=== PATIENT | male | born 1980 | race American Indian/Alaskan Native ===

== ENCOUNTER 2016-12-22 23:12 | Emergency (ER) | payer SELFPAY ==
[2016-12-23 00:05] LABS: Basophils % (Auto) 0.7 % (0.0-1.8); Eosinophils % (Auto) 1.6 % (0.0-4.3); Hemoglobin 15.3 gm/dl (11.8-15.2); Mean Corpuscular HGB Conc 32 % (32-34); Mean Corpuscular Hemoglobin 27 pg (28-32); Mean Corpuscular Volume 83 fl (84-94); Platelet Count 179 K/mm3 (140-440); Red Blood Count 5.78 M/mm3 (3.65-5.03); Red Cell Distribution Width 14.1 % (13.2-15.2); White Blood Count 8.3 K/mm3 (4.5-11.0)
[2016-12-23 00:20] LABS: Anion Gap 20 mmol/L; Blood Urea Nitrogen 11 mg/dL (9-20); Calcium 8.7 mg/dL (8.4-10.2); Carbon Dioxide 23 mmol/L (22-30); Chloride 97.9 mmol/L (98-107); Glucose 88 mg/dL (75-100); Potassium 3.7 mmol/L (3.6-5.0); Sodium 137 mmol/L (137-145)
[2016-12-23 02:21] VITALS: BP 112/82
--- NOTE | 2016-12-24 00:26 | ED Elopement Review ---
ED Pt Elopement review - Results review Lab results: Laboratory Tests 12/22/16 12/22/16 12/23/16 Unknown Unknown 03:33 WBC 8.3 RBC 5.78 H Hgb 15.3 H Hct 48.0 H MCV 83 L MCH 27 L MCHC 32 RDW 14.1 Plt Count 179 Lymph % (Auto) 28.7 [place] % (Auto) 10.0 H Eos % (Auto) 1.6 Baso % (Auto) 0.7 Lymph # 2.4 [place] # 0.8 Eos # 0.1 Baso # 0.1 Seg Neutrophils % 59.0 Seg Neutrophils # 4.9 Sodium 137 Potassium 3.7 Chloride 97.9 L Carbon Dioxide 23 Anion Gap 20 BUN 11 Creatinine 1.0 Estimated GFR > 60 BUN/Creatinine Ratio 11.00 Glucose 88 Calcium 8.7 Troponin T < 0.010 < 0.010 - Call Back decision Pt Call Back Decision: No action required
== END 2016-12-23 05:56 | disposition left against medical advice (07) ==
LOC: ED 23:12
DX: R07.9 Chest pain, unspecified (principal); Z53.21 Procedure and treatment not carried out due to patient leaving prior to being seen by health care provider
CPT/HCPCS: 36415; 80048; 84484; 85025; 93005; 93010

== ENCOUNTER 2017-01-28 08:00 | Inpatient (IN) | payer OTHER ==
[2017-01-28 09:31] LABS: Basophils % (Auto) 0.7 % (0.0-1.8); Eosinophils % (Auto) 2.4 % (0.0-4.3); Hematocrit 48.8 % (35.5-45.6); Hemoglobin 15.4 gm/dl (11.8-15.2); Mean Corpuscular HGB Conc 32 % (32-34); Mean Corpuscular Hemoglobin 26 pg (28-32); Mean Corpuscular Volume 83 fl (84-94); Platelet Count 181 K/mm3 (140-440); Red Blood Count 5.89 M/mm3 (3.65-5.03); Red Cell Distribution Width 14.5 % (13.2-15.2)
--- NOTE | 2017-01-28 09:44 | XRay Report ---
CHEST XRAY, 2 VIEWS: History: Cough. Findings: There is mild cardiomegaly. Pulmonary vessels are within normal limits. The lungs are clear and fully expanded. No infiltrate, pleural effusion or pneumothorax. Normal thoracic cage. 2-lead pacemaker devices in good position. IMPRESSION: Cardiomegaly.
[2017-01-28 10:09] LABS: INR 1.03 (0.87-1.13)
[2017-01-28 10:10] LABS: Partial Thromboplastin Time 28.3 Sec. (24.2-36.6)
[2017-01-28 10:21] LABS: Alanine Aminotransferase 16 units/L (7-56); Albumin 3.7 g/dL (3.9-5); Alkaline Phosphatase 67 units/L (35-129); BUN/Creatinine Ratio 11.11; Bilirubin,Total 0.5 mg/dL (0.1-1.2); Blood Urea Nitrogen 10 mg/dL (9-20); Calcium 8.7 mg/dL (8.4-10.2); Carbon Dioxide 25 mmol/L (22-30); Glucose 90 mg/dL (75-100); Total Protein 7.4 g/dL (6.3-8.2)
[2017-01-28 10:22] LABS: Anion Gap 18 mmol/L; Chloride 100.3 mmol/L (98-107); Potassium 4.2 mmol/L (3.6-5.0); Sodium 139 mmol/L (137-145)
[2017-01-28 10:26] LABS: Bilirubin,Direct < 0.2 mg/dL (0-0.2)
[2017-01-28] MEDS ORDERED: ROBITUSSIN AC PO ONE (10:45)
[2017-01-28] MEDS ORDERED: BABY ASPIRIN PO ONE (10:45)
--- NOTE | 2017-01-28 10:57 | Emergency Department Report ---
HPI - General Chief Complaint: Chest Pain Time Seen by Provider: 01/28/17 10:23 - HPI HPI: This is a 36-year-old Afro-[place] male who presents to the emergency department from home with complaint of a 2 month history of a mixed dry and productive cough, 2 day history of nausea and vomiting, as well as some increased chest tightness and shortness of breath the past few days. Patient says he has a history of asthma as well as bronchitis, that he has gotten 2-3 times in the past year. He has been having a productive cough with yellowish mucous but does not feel like he can get out enough of the mucus or chest congestion. Patient has a history of cardiomyopathy and a pacemaker/ defibrillator placement secondary to earlier heavy alcohol use. He also has a history of a CVA in 2013 that did not leave him with any deficits. The patient is a tobacco smoker and occasionally uses marijuana. He does not have a primary care doctor. No recent travel or sick contacts at home. He has not taken anything for symptoms today prior to presentation. ED Past Medical Hx - Past Medical History Hx Asthma: Yes Additional medical history: cardiomyopathy, irreg heart beat, Pacemaker/Defib, anxity, depression - Surgical History Additional Surgical History: Pacemaker/defib - Social History Smoking Status: Current Every Day Smoker Substance Use Type: None - Medications Home Medications: Home Medications Medication Instructions Recorded Confirmed Last Taken Type No Known Home Medications [No 01/28/17 01/28/17 Unknown History Reported Home Medications] ED Review of Systems ROS: Stated complaint: COUGH/CHEST TIGHTNESS Other details as noted in HPI Comment: All other systems reviewed and negative Constitutional: denies: chills, fever Eyes: denies: eye pain, eye discharge, vision change ENT: denies: ear pain, throat pain Respiratory: cough, shortness of breath, wheezing Cardiovascular: chest pain. denies: edema Gastrointestinal: nausea, vomiting. denies: abdominal pain Genitourinary: denies: urgency, dysuria Musculoskeletal: denies: back pain, joint swelling, arthralgia Skin: denies: rash, lesions Neurological: denies: headache, weakness, paresthesias Physical Exam - Physical Exam Vital Signs: Vital Signs 01/28/17 01/28/17 01/28/17 08:07 09:19 09:21 Temperature 98.5 F Pulse Rate 11 L 109 H Respiratory 24 Rate Blood Pressure 126/81 117/85 117/85 O2 Sat by Pulse 99 Oximetry 01/28/17 01/28/17 09:22 09:24 Temperature Pulse Rate 107 H Respiratory 48 H 24 Rate Blood Pressure 117/85 O2 Sat by Pulse 94 99 Oximetry Physical Exam: GENERAL: The patient is well-developed well-nourished. HEENT: Normocephalic. Atraumatic. Extraocular motions are intact. Patient has moist mucous membranes. Pupils equal reactive to light bilaterally. NECK: Supple. Trachea is midline. CHEST/LUNGS: Clear to auscultation. There is no respiratory distress noted. HEART/CARDIOVASCULAR: Regular. There is no tachycardia. There is no gallop rub or murmur. ABDOMEN: Abdomen is soft, nontender. Patient has normal bowel sounds. There is no abdominal distention. SKIN: There is no rash. There is no edema. There is no diaphoresis. NEURO: The patient is awake, alert, and oriented. The patient is cooperative. The patient has no focal neurologic deficits. The patient has normal speech. MUSCULOSKELETAL: There is no tenderness or deformity. There is no limitation range of motion. There is no evidence of acute injury. ED Course Vital Signs 01/28/17 01/28/17 01/28/17 08:07 09:19 09:21 Temperature 98.5 F Pulse Rate 11 L 109 H Respiratory 24 Rate Blood Pressure 126/81 117/85 117/85 O2 Sat by Pulse 99 Oximetry 01/28/17 01/28/17 09:22 09:24 Temperature Pulse Rate 107 H Respiratory 48 H 24 Rate Blood Pressure 117/85 O2 Sat by Pulse 94 99 Oximetry ED Medical Decision Making - Lab Data Result diagrams: 01/28/17 08:29 01/28/17 08:29 - EKG Data -: EKG Interpreted by Me EKG shows normal: sinus rhythm, axis (RAD), intervals (prolonged QTC), QRS complexes (right bundle-branch block), ST-T waves (T-wave inversions to the inferior leads, nonspecific ST-T changes) Rate: tachycardia (106 bpm) - EKG Data When compared to previous EKG there are: no significant change Interpretation: unchanged when compared t (12/22/16) - Radiology Data Radiology results: report reviewed, image reviewed interpreted by me: Chest x-ray did not show any acute process. Heart is normal shape and size. No effusions. No pneumothorax. No signs of pneumonia seen. CT angiography of the chest shows at least one small pulmonary embolus to the right lower lobe. Cardiomegaly. - Medical Decision Making 36-year-old male presents the emergency department with some chronic bronchitis- like symptoms but more recently some shortness of breath and some chest tightness. Patient does have a history of cardiomyopathy. Patient has only troponins despite that he has no renal insufficiency. EKG does not show any signs of ST elevation PR. She had a slightly elevated in equivocal d-dimer so a CT angiography of the chest was done that resulted as at least 1 small right lower lobe pulmonary embolus. Patient was given aspirin to protect his heart. He'll be admitted to the hospital for further evaluation and has been accepted by Dr. Clement. I put in the orders to start heparin but anticoagulation will be decided upon by the admitting hospitalist. - Differential Diagnosis PR, PE, pneumonia, costochondritis, CHF Critical Care Time: No Critical care attestation.: If time is entered above; I have spent that time in minutes in the direct care of this critically ill patient, excluding procedure time. ED Disposition Clinical Impression: Pulmonary embolus, right, Elevated troponin Chest pain Qualifiers: Chest pain type: unspecified Qualified Code(s): R07.9 - Chest pain, unspecified Dyspnea Qualifiers: Dyspnea type: unspecified Qualified Code(s): R06.00 - Dyspnea, unspecified Disposition: OP ADMITTED IP TO THIS HOSP Is pt being admited?: Yes Condition: Stable Time of Disposition: 15:42
--- NOTE | 2017-01-28 11:16 | Admit Criteria Form ---
Admission Criteria Documentation: PULMONARY EMBOLISM Clinical Indications for Admission to Inpatient Care (Place 'X' for any and all applicable criteria): Admission is indicated by ANY ONE of the following 1,2,3,4,5 [ ]I. Onset of hypoxia [ ]II. Hemodynamic instability 5 [ ]III. Massive pulmonary embolism (eg, acute embolism causing sustained hypotension, pulselessness, or bradycardia)5 [ ]IV. Need for IV narcotics (eg, to treat dyspnea) [ ]V. Current use of home oxygen therapy [ ]. Active bleeding [ ]VII. Recent surgery [ ]VIII. Active peptic ulcer disease [ ]IX. Documented extensive thrombosis (eg, clot in vena cava or above iliofemoral bifurcation) [ ]X. Embolism while on anticoagulation [ ]XI. 6 [X]XII. Appropriate monitoring and therapy cannot be provided in home or outpatient setting. [ ]XIII. Systemic or catheter-directed thrombolysis 5,7 [ ]XIV. Catheter embolectomy and fragmentation 6 [ ]XV. Vena cava filter placement5 [ ]XVI. Severely diminished cardiopulmonary reserve (eg, cor pulmonale, pulmonary hypertension) [ ]XVII. Severe renal failure (eg, GFR less than 30 mL/min/1.73m2 (0.5 mL/sec/ 1.73m2)) [ ]XVIII.Right ventricular dysfunction (eg, by echocardiogram) 6,11 [ ]XIX. Positive cardiac biomarker (eg, troponin T or I > 0.1 ng/mL (mcg/L), highly sensitive troponin I assay greater than 0.014 ng/mL (mcg/L), BNP or NT proBNP > assay threshold)5,8,9 [ ]XX. Known clotting abn or def (eg, liver disease, antithrombin III, protein C, or protein S abnormality) [ ]XXI. History of heparin-induced thrombocytopenia [ ]XXII. Inpatient admission required rather than observation care (Also use Pulmonary Embolism: Observation Care guideline as appropriate) because of ANY ONE of the following: [ ] a) Significant autoimmune (thrombocytopenia) or coagulopathic reaction occurs in response to anticoagulation [ ] b) Respiratory symptoms (eg, tachypnea, dyspnea) that are severe or persistent [ ] c) Other condition, treatment, or monitoring requiring inpatient admission Extended stay beyond goal length of stay may be needed for 3,28 [ ]a) Hemorrhage or recent surgery [ ]b) Recurrent thromboembolism [ ]c) Persistent hypoxemia [ ]d) Heparin-induced thrombocytopenia The original [facility] [employer] content created by [facility] [employer] has been revised. The portions of the content which have been revised are identified through the use of italic text or in bold, and [facility] has neither reviewed nor approved the modified material. All other unmodified content is copyright [facility] [employer] Please see references footnoted in the original [facility] [employer] edition 2016 Admission Criteria Met: Yes
[2017-01-28] MEDS ORDERED: NACL ONE (13:00)
[2017-01-28] MEDS ORDERED: HEPARIN 10,000 UNITS/10 ML IV ONE (15:40)
--- NOTE | 2017-01-28 15:47 | Cat Scan Report ---
CTA CHEST: History: Chest pain Technique: Helical CT following IV contrast. Pulmonary embolus protocol. Sagittal and coronal reformatted images. Rotational MIP images. Findings: Contrast bolus is satisfactory. At least one occlusive pulmonary emboli is identified in a third order pulmonary artery leading to the posterior segment of the right lower lobe. No large central pulmonary embolus. No emboli are identified in the left lung. There is mild cardiomegaly. Pacemaker device is in place. No pericardial effusion. The aorta is unremarkable. The thyroid gland, tracheobronchial tree, esophagus, lung rose and bony thorax are unremarkable. Impression: Positive for at least one small pulmonary embolus to the right lower lobe. Cardiomegaly. These findings were discussed with Dr. Monroe in the emergency Department at 1530 hrs. Please note this examination was just presented to me. The technologist did not QC the examination for 2 hours after the exam was finished.
[2017-01-28] MEDS ORDERED: HEPARIN/ 0.45% NACL-25,000 UNIT/500 ML 25,000 UNITS/500 ML BAG IV SCH (16:00)
[2017-01-28] MEDS: ROBITUSSIN AC PO PRN (19:43)
[2017-01-28 21:16] LABS: INR 1.01 (0.87-1.13)
[2017-01-28 21:17] LABS: Partial Thromboplastin Time 25.2 Sec. (24.2-36.6)
--- NOTE | 2017-01-28 23:37 | Event Note ---
Date: 01/28/17 See H/p in reports Acute PE-RLL 3rd order pulmomary artery
[2017-01-28] MEDS ORDERED: LOVENOX SUB-Q SCH (23:45)
[2017-01-29] MEDS: LOVENOX SUB-Q SCH ×3 (00:04→23:36)
[2017-01-29] MEDS: ROBITUSSIN AC PO PRN ×4 (00:04→19:18)
[2017-01-29] MEDS: NACL 0.9% 1000 ML 1,000 ML IV SCH (02:51)
[2017-01-29] MEDS ORDERED: DUONEB 0.5 MG-3 MG/3 ML SOLN IH PRN (06:43)
[2017-01-29] MEDS ORDERED: SODIUM CHLORIDE FLUSH SYRINGE 10 ML IV PRN (06:48)
[2017-01-29] MEDS ORDERED: PROVENTIL IH PRN (06:54)
--- NOTE | 2017-01-29 08:03 | History and Physical Report ---
LABORATORY DATA: White count is 7000, H and H is 15.4, hematocrit is 48.8, and platelet count is 181,000. D-dimer is ____. Electrolytes were normal. Troponin was 0.267 and 0.259. Albumin is 3.7. JOB# [id number] VSM/NTS
--- NOTE | 2017-01-29 08:08 | History and Physical Report ---
CHIEF COMPLAINT: 1.Left-sided chest pain. 2.Shortness of breath. HISTORY OF PRESENT ILLNESS: A 36-year-old -[place] male presents to the Emergency Department for 2-month history of dry cough, also increasing chest tightness and shortness of breath for the last few days, possibly 4 days. The patient has a history of asthma and bronchitis. Cough productive of yellow sputum. History of cerebrovascular accident in 2013 without any deficits. Smokes about a pack a day. Occasionally uses marijuana. PAST MEDICAL HISTORY: Significant for asthma, cardiomyopathy, irregular heartbeat, pacemaker and defibrillation, anxiety and depression. PAST SURGICAL HISTORY: Pacemaker and defibrillation. SOCIAL HISTORY: Smokes about a pack a day. CURRENT MEDICATIONS: Not taking any medication. REVIEW OF SYSTEMS: CONSTITUTIONAL: No fever, no chills. HEENT: No sore throat. No postnasal drip. CVS AND RESPIRATORY SYSTEM: Cough, shortness of breath and wheezing present. Also slight palpation present. Chest pain present. GASTROINTESTINAL: No nausea, no vomiting, no diarrhea. GENITOURINARY SYSTEM: No dysuria. No flank pain. MUSCULOSKELETAL: No joint pain. CENTRAL NERVOUS SYSTEM: No syncope, no seizures. SKIN: No rashes. A 14-point review of systems is done, otherwise negative. The main complaint on the review of systems is cough productive of yellow sputum, shortness of breath and palpitations. PHYSICAL EXAMINATION: GENERAL: Young male, cooperative during the examination. Cheerful. VITAL SIGNS: Blood pressure is 126/81, temperature is 98.5, pulse is , sats are 99%. HEENT: Unremarkable. Pupils equal and reactive. NECK: Supple, no lymphadenopathy, no thyromegaly. LUNGS: Clear to auscultation and percussion. Good air entry. CARDIOVASCULAR: S1, S2 heard. No gallop, no murmur, no rub. Apical impulse in left fifth intercostal in midclavicular line. ABDOMEN: Soft and benign. No hepatosplenomegaly. No guarding, no rigidity. Hernial orifices are normal. EXTREMITIES: Good pedal pulses. LABORATORY DATA: EKG shows sinus rhythm, right axis deviation, prolonged QTC intervals. Right bundle branch block. Nonspecific ST-T wave changes. Chest x-ray normal. CT angiography shows pulmonary embolism in the right lower lobe and a third-order pulmonary artery. ASSESSMENT AND PLAN: 1. Acute pulmonary embolism. The patient was initially started on IV heparin. Maybe switch to Lovenox 100 mg subcutaneous q.12h with bridging over to Coumadin. 2. Hypertension. The patient not on any medications. We will observe his blood pressure and initiate antihypertensives. 3. Congestive heart failure and cardiomyopathy. The patient not on any Lasix at this point. We will get an echocardiogram. Also, Cardiology consult. If necessary, the patient will be started on Lasix. 4. Asthma with bronchitis. DuoNeb and IV Levaquin initiated. 5. Chest pain. Lexiscan ordered for 01/30/2017. 6. Deep venous thrombosis prophylaxis, Lovenox 40 mg subcutaneous daily. [facility]# [id number] ALEXANDRA/WAI
[2017-01-29] MEDS: DUONEB 0.5 MG-3 MG/3 ML SOLN IH SCH ×3 (08:17→20:43)
[2017-01-29 08:37] LABS: Creatine Kinase MB 1.8 ng/mL (0.0-4.0)
--- NOTE | 2017-01-29 11:14 | Consultation ---
History of Present Illness Consult date: 01/29/17 History of present illness: Patient originally presented to the hospital because of chronic cough. He did not have chest pain or shortness of breath. A CT done is positive for a small PE in the right lower lobe. Patient has a history of non-ischemic cardiomyopathy s/p medtronic AICD. NO heart failure signs or symptoms noted on exam. No AICD discharge. Unfortunately, patient does not have regular follow-up with cardiology as outpatient. Past History Past Medical History: heart failure, hypertension, stroke Past Surgical History: Other (AICD) Social history: smoking Family history: no significant family history Medications and Allergies Allergies Allergy/AdvReac Type Severity Reaction Status Date / Time ibuprofen Allergy Vomiting Verified 12/22/16 23:44 mushroom Allergy Swelling Verified 12/22/16 23:44 Home Medications Medication Instructions Recorded Confirmed Last Taken Type No Known Home Medications [No 01/28/17 01/28/17 Unknown History Reported Home Medications] Active Meds: Active Medications Albuterol (Proventil) 2.5 mg IH Q3HRT PRN PRN Reason: Wheezing Albuterol/Ipratropium (Duoneb 0.5 Mg-3 Mg/3 Ml Soln) 1 ampul IH Q6HRT [facility] Last Admin: 01/29/17 08:17 Dose: 1 ampul Enoxaparin Sodium (Lovenox) 100 mg SUB-Q Q12H [facility] Last Admin: 01/29/17 00:04 Dose: 100 mg Sodium Chloride (Nacl 0.9% 1000 Ml) 1,000 mls @ 75 mls/hr IV DIRECT [facility] Last Admin: 01/29/17 02:51 Dose: 75 mls/hr Levofloxacin/Dextrose (Levaquin 750mg/150ml) 750 mg in 150 mls @ 100 mls/hr IV Q24HR [facility] PRN Reason: Protocol Pseudoephedrine/Acetam/Chlorphenir (Robitussin Ac) 10 ml PO Q4H PRN PRN Reason: Cough Last Admin: 01/29/17 06:51 Dose: 10 ml Sodium Chloride (Sodium Chloride Flush Syringe 10 Ml) 10 ml IV PRN PRN PRN Reason: LINE FLUSH Warfarin Sodium (Coumadin Pharmacy To Dose) 1 each PO PKCONSULT ALEXA PRN Reason: Protocol Warfarin Sodium (Coumadin) 10 mg PO DAILY@1700 [facility] Review of Systems All systems: negative Physical Examination Vital Signs Temp Pulse Resp BP Pulse Ox 98.5 F 11 L 24 126/81 99 01/28/17 08:07 01/28/17 08:07 01/28/17 08:07 01/28/17 08:07 01/28/17 08:07 General appearance: no acute distress HEENT: Positive: PERRL Neck: Positive: neck supple Cardiac: Positive: Reg Rate and Rhythm Lungs: Positive: Normal Exam Neuro: Positive: Grossly Intact Abdomen: Positive: Soft Extremities: Absent: edema Results 01/28/17 08:29 01/28/17 08:29 Cardiac Enzymes 01/29/17 Range/Units 07:11 CK-MB (CK-2) 1.8 (0.0-4.0) ng/mL Coagulation 01/28/17 Range/Units 19:40 PT 13.2 (12.2-14.9) Sec. INR 1.01 (0.87-1.13) APTT 25.2 (24.2-36.6) Sec. EKG interpretations - Telemetry EKG Rhythm: Sinus Rhythm Assessment and Plan Assessment: Non-ischemic cardiomyopathy Medtronic AICD Systemic Hypertension Tobacco use Small pulmonary embolism incidentally detected on chest CT Non-specific troponin secondary to cardiomyopathy and probable RV strain from acute PE No findings to suggest ACS Recommendations: Heart failure therapy Anticoagulation with lovenox and warfarin Echocardiogram to evaluate LVEF I would recommend re-evaluating the chest CT study with radiology in order to ascertain the presence of a PE Clinical presentation is more consistent with chronic bronchitis.
[2017-01-29] MEDS: LEVAQUIN 750MG/150ML 750 MG/150 ML BAG IV SCH (12:16)
[2017-01-29] MEDS: LASIX PO SCH (12:16)
[2017-01-29 13:42] LABS: Creatine Kinase MB 1.9 ng/mL (0.0-4.0)
--- NOTE | 2017-01-29 16:54 | Progress Note ---
Assessment and Plan Assessment and plan: Patient is 36-year-old male with past medical history of asthma, chronic bronchitis, admitted to the hospital with shortness of breath and productive cough and noted to have pulmonary embolism * Pulmonary embolism * Asthmatic bronchitis * Acute respiratory failure secondary to PE * Nonischemic cardiomyopathy * Status post AICD-Medtronic * Hypertension * Tobacco use * NSTEMI TYPE 2 Plan * Continue current treatment included Lovenox and warfarin when clinically stable because that discharged with Lovenox bridge until warfarin therapeutic * Cardiology input appreciated will await echocardiogram to evaluate LVEF * Will add prednisone for better control off shortness of breath. * Continue nebulizer treatments * Extensive counseling greater than 50 minutes provided to the patient the need to quit tobacco use patient verbalized understanding. * GI prophylaxis * DVT prophylaxis * Plan of care discussed with the patient and significant other. History Interval history: Patient seen and examined this morning, still with cough and some shortness of breath. Denies any chest pain, nausea, vomiting, diarrhea No fever noted blood pressure controlled No adverse events reported to me by nursing staff Hospitalist Physical - Physical exam Narrative exam: VITAL SIGNS: Reviewed. GENERAL: The patient appeared well nourished and normally developed. Vital signs as documented. HEAD: No signs of head trauma. EYES: Pupils are equal. Extraocular motions intact. EARS: Hearing grossly intact. MOUTH: Oropharynx is normal. NECK: No adenopathy, no JVD. CHEST: Chest with clear breath sounds bilaterally. No wheezes, rales, or rhonchi. CARDIAC: Regular rate and rhythm. S1 and S2, without murmurs, gallops, or rubs. VASCULAR: No Edema. Peripheral pulses normal and equal in all extremities. ABDOMEN: Soft, without detectable tenderness. No sign of distention. No rebound or guarding, and no masses palpated. Bowel Sounds normal. MUSCULOSKELETAL: Good range of motion of all major joints. Extremities without clubbing, cyanosis or edema. NEUROLOGIC EXAM: Alert and oriented x 3. No focal sensory or strength deficits. Speech normal. Follows commands. PSYCHIATRIC: Mood normal. SKIN: [place]TOES - Constitutional Vitals: Temp Pulse Resp BP Pulse Ox 98.7 F 98 H 20 133/78 95 01/29/17 08:00 01/29/17 08:27 01/29/17 08:27 01/29/17 08:00 01/29/17 08:17 General appearance: Present: no acute distress Results - Labs CBC & Chem 7: 01/28/17 08:29 01/28/17 08:29 Labs: Laboratory Last Values WBC 7.0 K/mm3 (4.5-11.0) 01/28/17 08:29 RBC 5.89 M/mm3 (3.65-5.03) H 01/28/17 08:29 Hgb 15.4 gm/dl (11.8-15.2) H 01/28/17 08:29 Hct 48.8 % (35.5-45.6) H 01/28/17 08:29 MCV 83 fl (84-94) L 01/28/17 08: MCH 26 pg (28-32) L 01/28/17 08: MCHC 32 % (32-34) 01/28/17 08: RDW 14.5 % (13.2-15.2) 01/28/17 08:29 Plt Count 181 K/mm3 (140-440) 01/28/17 08:29 Lymph % (Auto) 22.1 % (13.4-35.0) 01/28/17 08:29 [place] % (Auto) 9.5 % (0.0-7.3) H 01/28/17 08: Eos % (Auto) 2.4 % (0.0-4.3) 01/28/17 08:29 Baso % (Auto) 0.7 % (0.0-1.8) 01/28/17 08:29 Lymph # 1.6 K/mm3 (1.2-5.4) 01/28/17 08:29 [place] # 0.7 K/mm3 (0.0-0.8) 01/28/17 08: Eos # 0.2 K/mm3 (0.0-0.4) 01/28/17 08: Baso # 0.0 K/mm3 (0.0-0.1) 01/28/17 08: Seg Neutrophils % 65.3 % (40.0-70.0) 01/28/17 08: Seg Neutrophils # 4.6 K/mm3 (1.8-7.7) 01/28/17 08: PT 13.2 Sec. (12.2-14.9) 01/28/17 19:40 INR 1.01 (0.87-1.13) 01/28/17 19:40 APTT 25.2 Sec. (24.2-36.6) 01/28/17 19:40 D-Dimer 779.99 ng/mlDDU (0-234) H 01/28/17 11:07 Sodium 139 mmol/L (137-145) 01/28/17 08:29 Potassium 4.2 mmol/L (3.6-5.0) 01/28/17 08:29 Chloride 100.3 mmol/L (98-107) 01/28/17 08:29 Carbon Dioxide 25 mmol/L (22-30) 01/28/17 08:29 Anion Gap 18 mmol/L 01/28/17 08:29 BUN 10 mg/dL (9-20) 01/28/17 08:29 Creatinine 0.9 mg/dL (0.8-1.5) 01/28/17 08:29 Estimated GFR > 60 ml/min 01/28/17 08:29 BUN/Creatinine Ratio 11.11 % 01/28/17 08:29 Glucose 90 mg/dL (75-100) 01/28/17 08:29 Calcium 8.7 mg/dL (8.4-10.2) 01/28/17 08:29 Total Bilirubin 0.5 mg/dL (0.1-1.2) 01/28/17 08:29 Direct Bilirubin < 0.2 mg/dL (0-0.2) 01/28/17 08:29 AST 26 units/L (5-40) 01/28/17 08:29 ALT 16 units/L (7-56) 01/28/17 08:29 Alkaline Phosphatase 67 units/L (35-129) 01/28/17 08:29 Total Creatine Kinase 210 units/L (55-170) H 01/29/17 12:30 CK-MB (CK-2) 1.9 ng/mL (0.0-4.0) 01/29/17 12:30 CK-MB (CK-2) Rel Index 0.9 (0-4) 01/29/17 12:30 Troponin T 0.126 ng/mL (0.00-0.029) H* D 01/29/17 12:30 Total Protein 7.4 g/dL (6.3-8.2) 01/28/17 08:29 Albumin 3.7 g/dL (3.9-5) L 01/28/17 08:29 Albumin/Globulin Ratio 1.0 % 01/28/17 08:29 Triglycerides 141 mg/dL (2-149) 01/28/17 08:29 Cholesterol 165 mg/dL (50-199) 01/28/17 08:29 LDL Cholesterol Direct 108 mg/dL (50-130) 01/28/17 08:29 HDL Cholesterol 41 mg/dL (40-59) 01/28/17 08:29 Cholesterol/HDL Ratio 4.02 % 01/28/17 08:29 - Imaging and Cardiology CT scan - chest: image reviewed (pulmonary embolism)
[2017-01-29] MEDS: COUMADIN PO SCH (18:29)
[2017-01-29] MEDS: DELTASONE PO SCH (18:30)
[2017-01-29] MEDS: COREG PO SCH (23:34)
[2017-01-30 07:38] LABS: Hematocrit 47.9 % (35.5-45.6); Hemoglobin 15.3 gm/dl (11.8-15.2)
[2017-01-30 07:49] LABS: INR 1.12 (0.87-1.13)
[2017-01-30] MEDS: ROBITUSSIN AC PO PRN ×4 (08:45→20:24)
[2017-01-30] MEDS: DUONEB 0.5 MG-3 MG/3 ML SOLN IH SCH ×3 (08:56→20:41)
[2017-01-30] MEDS: DELTASONE PO SCH (09:00)
[2017-01-30] MEDS: ZESTRIL PO SCH (09:00)
[2017-01-30] MEDS: LASIX PO SCH (09:00)
[2017-01-30] MEDS: COREG PO SCH ×2 (09:01→23:07)
[2017-01-30] MEDS: LEVAQUIN 750MG/150ML 750 MG/150 ML BAG IV SCH (09:05)
--- NOTE | 2017-01-30 10:13 | Progress Note ---
Assessment and Plan Small pulmonary embolism incidentally detected on chest CT initiated on warfarin with lovenox bridge. Non-ischemic cardiomyopathy EF 10-15% on echo Presence of Medtronic AICD Systemic Hypertension Tobacco use Non-specific troponin secondary to cardiomyopathy and probable RV strain from acute PE No findings to suggest ACS Recommendations: Medical therapy for his nonischemic cardiomyopathy. Subjective Date of service: 01/30/17 Interval history: Patient complains of continued coughs. Objective Vital Signs Temp Pulse Pulse Pulse Pulse Resp Resp 01/30/17 09:06 94 H 01/30/17 09:05 01/30/17 09:01 96 H 01/30/17 09:00 96 H 01/30/17 08:56 92 H 01/30/17 08:00 96.9 F L 96 H 20 01/30/17 06:00 93 H 01/30/17 05:11 97.5 F L 86 20 01/30/17 01:08 97.8 F 92 H 20 01/29/17 23:34 01/29/17 22:44 101 H 01/29/17 20:52 107 H 18 01/29/17 20:47 01/29/17 20:44 112 H 16 01/29/17 20:42 98.5 F 104 H 22 01/29/17 19:42 98.1 F 104 H 18 01/29/17 15:02 97 H 20 01/29/17 14:51 100 H 18 01/29/17 12:00 94 H Resp BP BP Pulse Ox 01/30/17 09:06 18 01/30/17 09:05 97 01/30/17 09:01 120/75 01/30/17 09:00 120/75 01/30/17 08:56 18 01/30/17 08:00 120/75 97 01/30/17 06:00 01/30/17 05:11 01/30/17 01:08 121/84 98 01/29/17 23:34 129/97 01/29/17 22:44 01/29/17 20:52 01/29/17 20:47 97 01/29/17 20:44 01/29/17 20:42 129/97 93 01/29/17 19:42 147/101 100 01/29/17 15:02 01/29/17 14:51 01/29/17 12:00 - Physical Examination General: No Apparent Distress HEENT: Positive: PERRL Neck: Positive: neck supple Cardiac: Positive: Reg Rate and Rhythm Lungs: Positive: Decreased Breath Sounds Neuro: Positive: Grossly Intact Extremities: Absent: edema - Labs and Meds Cardiac Enzymes 01/29/17 Range/Units 12:30 CK-MB (CK-2) 1.9 (0.0-4.0) ng/mL Coagulation 01/30/17 Range/Units 06:41 PT 14.3 (12.2-14.9) Sec. INR 1.12 (0.87-1.13) CBC 01/30/17 Range/Units 06:41 Hgb 15.3 H (11.8-15.2) gm/dl Hct 47.9 H (35.5-45.6) % Plt Count 206 (140-440) K/mm3
[2017-01-30] MEDS: LOVENOX SUB-Q SCH ×2 (12:15→23:07)
[2017-01-30] MEDS: COUMADIN PO SCH (17:12)
--- NOTE | 2017-01-30 17:27 | Progress Note ---
Assessment and Plan Assessment and plan: Patient is 36-year-old male with past medical history of asthma, chronic bronchitis, admitted to the hospital with shortness of breath and productive cough and noted to have pulmonary embolism * Pulmonary embolism * Asthmatic bronchitis * Acute respiratory failure secondary to PE * Nonischemic cardiomyopathy * Status post AICD-Medtronic * Hypertension * Tobacco use * NSTEMI TYPE 2 * Nonsustained V. tach * Noncompliance Plan * Continue current treatment included Lovenox and warfarin when clinically stable because that discharged with Lovenox bridge until warfarin therapeutic * Cardiology input appreciated, echocardiogram shows 10-15%. * Discussed extensively the importance of compliance. Patient verbalized understanding spouse present. * Continue prednisone taper patient would need prolonged tapering dose. * We'll check electrolytes and lites of the nonsustained V. tach. * Continue beta ko, oral antiplatelet therapy, strict low-salt diet forced. * Continue nebulizer treatments * Extensive counseling greater than 50 minutes provided to the patient the need to quit tobacco use patient verbalized understanding. * GI prophylaxis * DVT prophylaxis * Plan of care discussed with the patient and significant other. * Anticipated discharge in a.m. if no further cardiac arrhythmia History Interval history: Patient seen and examined this morning, still with cough and some shortness of breath but reports some improvement today. Denies any chest pain, nausea, vomiting, diarrhea No fever noted blood pressure controlled No adverse events reported to me by nursing staff Hospitalist Physical - Physical exam Narrative exam: VITAL SIGNS: Reviewed. GENERAL: The patient appeared well nourished and normally developed. Vital signs as documented. HEAD: No signs of head trauma. EYES: Pupils are equal. Extraocular motions intact. EARS: Hearing grossly intact. MOUTH: Oropharynx is normal. NECK: No adenopathy, no JVD. CHEST: Chest with clear breath sounds bilaterally. No wheezes, rales, or rhonchi. CARDIAC: Regular rate and rhythm. S1 and S2, without murmurs, gallops, or rubs. VASCULAR: No Edema. Peripheral pulses normal and equal in all extremities. ABDOMEN: Soft, without detectable tenderness. No sign of distention. No rebound or guarding, and no masses palpated. Bowel Sounds normal. MUSCULOSKELETAL: Good range of motion of all major joints. Extremities without clubbing, cyanosis or edema. NEUROLOGIC EXAM: Alert and oriented x 3. No focal sensory or strength deficits. Speech normal. Follows commands. PSYCHIATRIC: Mood normal. SKIN: TATTOES - Constitutional Vitals: Temp Pulse Resp BP Pulse Ox 96.4 F L 92 H 16 133/82 100 01/30/17 12:00 01/30/17 14:35 01/30/17 14:35 01/30/17 12:00 01/30/17 12:00 General appearance: Present: no acute distress Results - Labs CBC & Chem 7: 01/30/17 06:41 01/28/17 08:29 Labs: Laboratory Last Values WBC 7.0 K/mm3 (4.5-11.0) 01/28/17 08:29 RBC 5.89 M/mm3 (3.65-5.03) H 01/28/17 08:29 Hgb 15.3 gm/dl (11.8-15.2) H 01/30/17 06:41 Hct 47.9 % (35.5-45.6) H 01/30/17 06:41 MCV 83 fl (84-94) L 01/28/17 08:29 MCH 26 pg (28-32) L 01/28/17 08:29 MCHC 32 % (32-34) 01/28/17 08:29 RDW 14.5 % (13.2-15.2) 01/28/17 08:29 Plt Count 206 K/mm3 (140-440) 01/30/17 06:41 Lymph % (Auto) 22.1 % (13.4-35.0) 01/28/17 08:29 [place] % (Auto) 9.5 % (0.0-7.3) H 01/28/17 08:29 Eos % (Auto) 2.4 % (0.0-4.3) 01/28/17 08:29 Baso % (Auto) 0.7 % (0.0-1.8) 01/28/17 08:29 Lymph # 1.6 K/mm3 (1.2-5.4) 01/28/17 08:29 [place] # 0.7 K/mm3 (0.0-0.8) 01/28/17 08:29 Eos # 0.2 K/mm3 (0.0-0.4) 01/28/17 08:29 Baso # 0.0 K/mm3 (0.0-0.1) 01/28/17 08:29 Seg Neutrophils % 65.3 % (40.0-70.0) 01/28/17 08:29 Seg Neutrophils # 4.6 K/mm3 (1.8-7.7) 01/28/17 08:29 PT 14.3 Sec. (12.2-14.9) 01/30/17 06:41 INR 1.12 (0.87-1.13) 01/30/17 06:41 APTT 25.2 Sec. (24.2-36.6) 01/28/17 19:40 D-Dimer 779.99 ng/mlDDU (0-234) H 01/28/17 11:07 Sodium 139 mmol/L (137-145) 01/28/17 08:29 Potassium 4.2 mmol/L (3.6-5.0) 01/28/17 08:29 Chloride 100.3 mmol/L (98-107) 01/28/17 08:29 Carbon Dioxide 25 mmol/L (22-30) 01/28/17 08:29 Anion Gap 18 mmol/L 01/28/17 08:29 BUN 10 mg/dL (9-20) 01/28/17 08:29 Creatinine 0.9 mg/dL (0.8-1.5) 01/28/17 08:29 Estimated GFR > 60 ml/min 01/28/17 08:29 BUN/Creatinine Ratio 11.11 % 01/28/17 08:29 Glucose 90 mg/dL (75-100) 01/28/17 08:29 Calcium 8.7 mg/dL (8.4-10.2) 01/28/17 08:29 Total Bilirubin 0.5 mg/dL (0.1-1.2) 01/28/17 08:29 Direct Bilirubin < 0.2 mg/dL (0-0.2) 01/28/17 08:29 AST 26 units/L (5-40) 01/28/17 08:29 ALT 16 units/L (7-56) 01/28/17 08:29 Alkaline Phosphatase 67 units/L (35-129) 01/28/17 08:29 Total Creatine Kinase 210 units/L (55-170) H 01/29/17 12:30 CK-MB (CK-2) 1.9 ng/mL (0.0-4.0) 01/29/17 12:30 CK-MB (CK-2) Rel Index 0.9 (0-4) 01/29/17 12:30 Troponin T 0.126 ng/mL (0.00-0.029) H* D 01/29/17 12:30 Total Protein 7.4 g/dL (6.3-8.2) 01/28/17 08:29 Albumin 3.7 g/dL (3.9-5) L 01/28/17 08:29 Albumin/Globulin Ratio 1.0 % 01/28/17 08:29 Triglycerides 141 mg/dL (2-149) 01/28/17 08:29 Cholesterol 165 mg/dL (50-199) 01/28/17 08:29 LDL Cholesterol Direct 108 mg/dL (50-130) 01/28/17 08:29 HDL Cholesterol 41 mg/dL (40-59) 01/28/17 08:29 Cholesterol/HDL Ratio 4.02 % 01/28/17 08:29
[2017-01-30] MEDS: NACL 0.9% 1000 ML 1,000 ML IV SCH (23:08)
[2017-01-31] MEDS: ROBITUSSIN AC PO PRN (06:15)
[2017-01-31 06:41] LABS: INR 1.54 (0.87-1.13)
[2017-01-31 06:53] LABS: Anion Gap 17 mmol/L; Blood Urea Nitrogen 16 mg/dL (9-20); Carbon Dioxide 23 mmol/L (22-30); Chloride 100.7 mmol/L (98-107); Glucose 97 mg/dL (75-100); Sodium 137 mmol/L (137-145)
[2017-01-31] MEDS ORDERED: MAGNESIUM SULFATE IV ONE (08:36)
--- NOTE | 2017-01-31 08:41 | Discharge Summary ---
Providers - Providers Date of Admission: 01/28/17 15:43 Date of discharge: 01/31/17 Attending physician: ALVINA PATEL MD 01/29/17 Consult to Cardiac Rehabilitation [CONS] Routine Reason For Exam: Phase I 01/29/17 06:47 Consult to Physician [CONS] Routine Consulting Provider: ESTEFANIA RAMÍREZ Reason For Exam: Cardiomyopathy Place consult to:: jorge heart Notified:: yes Phone number called:: on floor Was contact made?: Yes If yes, spoke with:: irma Time called:: 10:23 Primary care physician: ESL INSTRUCTOR Hospitalization Reason for admission: pulmonary embolisim Condition: Stable Hospital course: Patient is 36-year-old male with past medical history of asthma, chronic bronchitis, nonischemic cardiomyopathy EF 10-15% status post AICD admitted to the hospital with shortness of breath and productive cough and noted to have pulmonary embolism. He was started on Lovenox with warfarin bridge. His INR today is 1.54. He was also noted to have possible pneumonia for which she was started on empiric antibiotic coverage. He is to complete this outpatient. He clinically improved with reduction in his noted shortness of breath. He apparently has not been compliant with his medication due to cost of discussed this extensively with him and reviewed his medication list to try to make sure he gets medicines on the $4 list I Magdalena this has also been discussed with the patient. He understands the Lovenox as a bridge to his Coumadin level is therapeutic and also requested that he gets the next eye and check on 2016 of the doctor's office and at that time they can adjust the Coumadin or increase the duration of the Lovenox. We did discharge the patient on the risk associated with anticoagulation he verbalized understanding. will also give a tapering dose of steroids. He did have an episode of nonsustained V. tach. CARDIOLOGY INPUT WAS HIGHLY APPRECIATIVE. Discharge Diagnosis * Pulmonary embolism * Asthmatic bronchitis * Acute respiratory failure secondary to PE * Nonischemic cardiomyopathy * Status post AICD-Medtronic * Hypertension * Tobacco use * NSTEMI TYPE 2 * Nonsustained V. tach * Noncompliance Disposition: DISCHARGED TO HOME OR SELFCARE Time spent for discharge: 35 mins Core Measure Documentation - Palliative Care Palliative Care/ Comfort Measures: Not Applicable - Core Measures Any of the following diagnoses?: DVT/PE - VTE Discharge Requirements Deep Vein Thrombosis/Pulmonary Embolism Present on Admission: Yes Has pt received <5 days of overlap therapy or INR<2.0: Yes Anticoagulant overlap therapy prescribed at discharge: Yes Exam - Physical Exam Narrative exam: VITAL SIGNS: Reviewed. GENERAL: The patient appeared well nourished and normally developed. Vital signs as documented. HEAD: No signs of head trauma. EYES: Pupils are equal. Extraocular motions intact. EARS: Hearing grossly intact. MOUTH: Oropharynx is normal. NECK: No adenopathy, no JVD. CHEST: Chest with clear breath sounds bilaterally. No wheezes, rales, or rhonchi. CARDIAC: Regular rate and rhythm. S1 and S2, without murmurs, gallops, or rubs. VASCULAR: No Edema. Peripheral pulses normal and equal in all extremities. ABDOMEN: Soft, without detectable tenderness. No sign of distention. No rebound or guarding, and no masses palpated. Bowel Sounds normal. MUSCULOSKELETAL: Good range of motion of all major joints. Extremities without clubbing, cyanosis or edema. NEUROLOGIC EXAM: Alert and oriented x 3. No focal sensory or strength deficits. Speech normal. Follows commands. PSYCHIATRIC: Mood normal. SKIN: TATTOES - Constitutional Vitals: Temp Pulse Resp BP Pulse Ox 98.3 F 95 H 18 122/60 98 01/31/17 04:00 01/31/17 04:00 01/31/17 04:00 01/31/17 04:00 01/31/17 04:00 Plan Activity: advance as tolerated, fall precautions Diet: low fat, low salt Special Instructions: record daily weights, record daily BP diary, smoking cessation Additional Instructions: INR check in 3 days. friday Follow up with: RELL SMITH MD [Primary Care Provider] - 3-5 Days ESTEFANIA RAMÍREZ MD [Staff Physician] - 7 Days Forms: Warfarin Discharge Instruction Prescriptions: ALBUTEROL Inhaler [ProAir HFA Inhaler] 2 puff IH QID PRN #30 inhalation PRN Reason: Shortness Of Breath Carvedilol [Coreg] 3.125 mg PO BID #60 tablet Enoxaparin [Lovenox] 100 mg SQ Q12HR #10 syringe Furosemide [Lasix TAB] 40 mg PO QDAY #30 tablet guaiFENesin/CODEINE [Robitussin AC] 10 ml PO Q4H PRN 14 Days PRN Reason: Cough Levofloxacin [Levaquin TAB] 750 mg PO Q24HR #5 tablet Lisinopril [Zestril TAB] 2.5 mg PO QDAY #30 tablet predniSONE [Deltasone] 10 mg PO .TAPER #48 tab Warfarin [Coumadin] 7.5 mg PO QDAY #30 tablet
[2017-01-31] MEDS ORDERED: MAGNESIUM SULFATE 1 GM in NACL 0.9% 50 ML IV ONE (10:00)
[2017-01-31] MEDS ORDERED: LEVAQUIN PO SCH (10:00)
--- NOTE | 2017-01-31 10:02 | Progress Note ---
Assessment and Plan Small pulmonary embolism incidentally detected on chest CT initiated on warfarin with lovenox bridge. Non-ischemic cardiomyopathy EF 10-15% on echo Presence of Medtronic AICD Systemic Hypertension Tobacco use Non-specific troponin secondary to cardiomyopathy and probable RV strain from acute PE No findings to suggest ACS Recommendations: Medical therapy for his nonischemic cardiomyopathy. Stable for cardiac discharge. Subjective Date of service: 01/31/17 Interval history: Patient denies shortness of breath and chest pain. Objective Vital Signs Temp Pulse Pulse Pulse Resp Resp BP 01/31/17 08:32 96.7 F L 104 H 18 124/93 01/31/17 04:00 98.3 F 95 H 18 122/60 01/31/17 00:49 98.1 F 47 L 18 109/60 01/30/17 20:54 87 01/30/17 20:48 91 H 16 01/30/17 20:36 89 20 01/30/17 20:15 20 01/30/17 19:48 97.8 F 93 H 18 140/73 01/30/17 16:00 97.5 F L 95 H 20 125/65 01/30/17 14:35 92 H 16 01/30/17 14:25 90 16 01/30/17 13:59 83 01/30/17 12:00 96.4 F L 99 H 20 133/82 01/30/17 11:00 22 Pulse Ox 01/31/17 08:32 99 01/31/17 04:00 98 01/31/17 00:49 97 01/30/17 20:54 01/30/17 20:48 01/30/17 20:36 01/30/17 20:15 01/30/17 19:48 95 01/30/17 16:00 99 01/30/17 14:35 01/30/17 14:25 01/30/17 13:59 01/30/17 12:00 100 01/30/17 11:00 97 - Physical Examination General: No Apparent Distress HEENT: Positive: PERRL Neck: Positive: neck supple Cardiac: Positive: Reg Rate and Rhythm Lungs: Positive: Decreased Breath Sounds Neuro: Positive: Grossly Intact Extremities: Absent: edema - Labs and Meds Coagulation 01/31/17 Range/Units 06:06 PT 18.5 H (12.2-14.9) Sec. INR 1.54 H (0.87-1.13) Comprehensive Metabolic Panel 01/31/17 Range/Units 06:06 Sodium 137 (137-145) mmol/L Potassium 4.0 (3.6-5.0) mmol/L Chloride 100.7 (98-107) mmol/L Carbon Dioxide 23 (22-30) mmol/L BUN 16 (9-20) mg/dL Creatinine 0.8 (0.8-1.5) mg/dL Glucose 97 (75-100) mg/dL Calcium 9.0 (8.4-10.2) mg/dL
[2017-01-31] MEDS: DUONEB 0.5 MG-3 MG/3 ML SOLN IH SCH (10:04)
[2017-01-31] MEDS: LASIX PO SCH (10:55)
[2017-01-31] MEDS: COREG PO SCH (10:56)
[2017-01-31] MEDS: DELTASONE PO SCH (10:56)
[2017-01-31] MEDS: ZESTRIL PO SCH (10:57)
[2017-01-31 10:59] VITALS: BP 125/73
== END 2017-01-31 13:09 | disposition home or self-care (01) | DRG 175 ==
LOC: ED 08:00 → 4A 15:43
PROVIDERS: ADMIT Internal Medicine; ATTEND Internal Medicine
DX: I26.99 Other pulmonary embolism without acute cor pulmonale (principal); J96.00 Acute respiratory failure, unspecified whether with hypoxia or hypercapnia; I21.4 Non-ST elevation (NSTEMI) myocardial infarction; J18.9 Pneumonia, unspecified organism; I42.9 Cardiomyopathy, unspecified; R79.89 Other specified abnormal findings of blood chemistry; R07.9 Chest pain, unspecified; J45.909 Unspecified asthma, uncomplicated; Z95.810 Presence of automatic (implantable) cardiac defibrillator; Z86.73 Personal history of transient ischemic attack (TIA), and cerebral infarction without residual deficits; F12.90 Cannabis use, unspecified, uncomplicated; F41.9 Anxiety disorder, unspecified; F32.9 Major depressive disorder, single episode, unspecified; F17.210 Nicotine dependence, cigarettes, uncomplicated; Z88.8 Allergy status to other drugs, medicaments and biological substances; Z91.02 Food additives allergy status; Z91.19 Patient's noncompliance with other medical treatment and regimen
CPT/HCPCS: 36415; 71020; 71275; 80048; 80053; 80061; 80074; 82550; 82553; 84484; 85014; 85018; 85025; 85049; 85379; 85610; 85730; 93005; 93010; 93306; 94640; J1650; J1956; J3475; J7030; J7512; Q9967

== ENCOUNTER 2017-03-01 20:16 | Emergency (ER) | payer SELFPAY ==
[2017-03-01 21:24] LABS: Anion Gap 18 mmol/L; Blood Urea Nitrogen 10 mg/dL (9-20); Calcium 8.6 mg/dL (8.4-10.2); Carbon Dioxide 23 mmol/L (22-30); Chloride 98.4 mmol/L (98-107); Glucose 100 mg/dL (75-100); Potassium 3.6 mmol/L (3.6-5.0); Sodium 136 mmol/L (137-145)
[2017-03-01 21:35] LABS: Basophils % (Auto) 0.8 % (0.0-1.8); Eosinophils % (Auto) 1.1 % (0.0-4.3); Hematocrit 48.1 % (35.5-45.6); Hemoglobin 15.7 gm/dl (11.8-15.2); Mean Corpuscular HGB Conc 33 % (32-34); Mean Corpuscular Hemoglobin 26 pg (28-32); Mean Corpuscular Volume 81 fl (84-94); Platelet Count 166 K/mm3 (140-440); Red Blood Count 5.93 M/mm3 (3.65-5.03); White Blood Count 8.6 K/mm3 (4.5-11.0)
[2017-03-01 21:47] LABS: INR 1.02 (0.87-1.13)
[2017-03-01 21:48] LABS: Partial Thromboplastin Time 26.5 Sec. (24.2-36.6)
[2017-03-01] MEDS ORDERED: NACL ONE (22:35)
--- NOTE | 2017-03-01 22:48 | Emergency Department Report ---
HPI - General Chief Complaint: Chest Pain Time Seen by Provider: 03/01/17 21:36 - HPI HPI: This is a 36-year-old [place] male who presents to the emergency department with complaint of midsternal chest pain that began this morning. He denies any significant shortness of breath but says that the chest pain worsens with respirations. He has a history of CHF, cardiomyopathy, irregular heartbeat , pacemaker/to fibular replacement and pulmonary wasn't. The patient says he was here last month and diagnosed with a pulmonary most of that time and started on Lovenox and then Coumadin. However once he got outpatient, the patient did not have enough insurance to find a cheaper or suitable place to get his INR checked on a regular basis and therefore just stopped taking the Coumadin on his own accord. He does not have a primary care doctor or phlebotomy tech. He did not take anything today for symptoms prior to presentation. No recent travel or sick contacts at home. ED Past Medical Hx - Past Medical History Hx CVA: Yes Hx Congestive Heart Failure: Yes Hx Diabetes: No Hx Asthma: Yes Hx COPD: No Additional medical history: cardiomyopathy, irreg heart beat, Pacemaker/Defib, anxity, depression, Pulmonary Embolism, - Surgical History Additional Surgical History: Pacemaker/defib - Social History Smoking Status: Current Every Day Smoker Substance Use Type: None - Medications Home Medications: Home Medications Medication Instructions Recorded Confirmed Last Taken Type ALBUTEROL Inhaler [ProAir HFA 2 puff IH QID PRN #30 inhalation 01/31/17 Unknown Rx Inhaler] Carvedilol [Coreg] 3.125 mg PO BID #60 tablet 01/31/17 03/01/17 Unknown Rx Enoxaparin [Lovenox] 100 mg SQ Q12HR #10 syringe 01/31/17 03/01/17 Unknown Rx Furosemide [Lasix TAB] 40 mg PO QDAY #30 tablet 01/31/17 03/01/17 Unknown Rx Lisinopril [Zestril TAB] 2.5 mg PO QDAY #30 tablet 01/31/17 03/01/17 Unknown Rx Warfarin [Coumadin] 7.5 mg PO QDAY #30 tablet 01/31/17 03/01/17 Unknown Rx guaiFENesin/CODEINE [Robitussin AC] 10 ml PO Q4H PRN 14 Days 01/31/17 03/01/17 Unknown Rx predniSONE [Deltasone] 10 mg PO .TAPER #48 tab 01/31/17 03/01/17 Unknown Rx ED Review of Systems ROS: Stated complaint: CHEST PAIN Other details as noted in HPI Comment: All other systems reviewed and negative Constitutional: denies: chills, fever Eyes: denies: eye pain, eye discharge, vision change ENT: denies: ear pain, throat pain Respiratory: denies: cough, wheezing Cardiovascular: chest pain. denies: palpitations, edema Gastrointestinal: denies: abdominal pain, nausea, diarrhea Genitourinary: denies: urgency, dysuria Musculoskeletal: denies: back pain, joint swelling, arthralgia Skin: denies: rash, lesions Neurological: denies: headache, weakness, paresthesias Physical Exam - Physical Exam Vital Signs: Vital Signs 03/01/17 20:43 Temperature 98.3 F Pulse Rate 97 H Respiratory 18 Rate Blood Pressure 146/101 Blood Pressure 146/101 [Left] O2 Sat by Pulse 100 Oximetry Physical Exam: GENERAL: The patient is well-developed well-nourished area. HEENT: Normocephalic. Atraumatic. Extraocular motions are intact. Patient has moist mucous membranes. Pupils equal reactive to light bilaterally. NECK: Supple. Trachea is midline. CHEST/LUNGS: Clear to auscultation. There is no respiratory distress noted. HEART/CARDIOVASCULAR: Regular. There is no tachycardia. No tachypnea or accessory muscle use. There is no gallop rub or murmur. ABDOMEN: Abdomen is soft, nontender. Patient has normal bowel sounds. There is no abdominal distention. SKIN: Skin is warm and dry. NEURO: The patient is awake, alert, and oriented. The patient is cooperative. The patient has no focal neurologic deficits. The patient has normal speech. MUSCULOSKELETAL: There is no tenderness or deformity. There is no limitation range of motion. There is no evidence of acute injury. ED Course Vital Signs 03/01/17 20:43 Temperature 98.3 F Pulse Rate 97 H Respiratory 18 Rate Blood Pressure 146/101 Blood Pressure 146/101 [Left] O2 Sat by Pulse 100 Oximetry ED Medical Decision Making - Lab Data Result diagrams: 03/01/17 20:53 03/01/17 20:53 - EKG Data -: EKG Interpreted by Me EKG shows normal: sinus rhythm, axis, intervals, QRS complexes (right bundle branch block, left anterior fascicular block, Q waves to the septal and anterior leads), ST-T waves (no ST elevation) Rate: normal - EKG Data When compared to previous EKG there are: no significant change Interpretation: unchanged when compared t (01/29/17) - Radiology Data Radiology results: report reviewed, image reviewed interpreted by me: Chest x-ray shows some mild cardiomegaly. No obvious pleural effusions, pneumothorax or pneumonia. There is a pacemaker/defibrillator in place. CT of the chest angiography shows no evidence of pulmonary arterial emboli. There is a small focus of reactive lung tissue of the right middle lung laterally. Cardiomegaly with no evidence of pericardial effusion. Cardiac pacemaker battery in the left chest wall. - Medical Decision Making 36-year-old male presents to the emergency department with some midsternal chest pain and it worsens with respirations but he denies any significant shortness of breath. Patient was here one month ago and had a full cardiac workup including echocardiogram. At that time he was found to have at least one small right-sided pulmonary embolus and the patient has been noncompliant with his anticoagulation. However the patient had a CT angiography of the chest today that does not show any pulmonary arterial emboli. He has had negative troponins 2. EKG shows a bifascicular block but it is unchanged from previous EKG. His vital signs were stable throughout his ED course. Patient has been reevaluated multiple times for multiple hours and has remained stable and appears improved. Upon this last reevaluation, the patient is sleeping comfortably on the gurney. He will be discharged home to follow up with cardiology and encouraged to return to the ER with any worsening of symptoms or any acute distress. - Differential Diagnosis AR, PE, costochondritis, GERD, pneumonia, CHF Critical Care Time: No Critical care attestation.: If time is entered above; I have spent that time in minutes in the direct care of this critically ill patient, excluding procedure time. ED Disposition Clinical Impression: Chest pain Qualifiers: Chest pain type: unspecified Qualified Code(s): R07.9 - Chest pain, unspecified Disposition: DISCHARGED TO HOME OR SELFCARE Is pt being admited?: No Condition: Stable Instructions: Chest Pain (ED) Additional Instructions: I have given you a referral for the cardiology group that he saw when you were last admitted to [facility]. It is encouraged that you follow up with cardiology in the next few days. Return to the emergency department with any worsening of your symptoms or any acute distress. Referrals: PRIMARY CARE, [Primary Care Provider] - 3-5 Days ERNESTO LEE MD [Staff Physician] - 3-5 Days Time of Disposition: 00:34
--- NOTE | 2017-03-01 23:58 | Cat Scan Report ---
FINAL REPORT PROCEDURE: CT ANGIO CHEST TECHNIQUE: Computerized tomographic angiography of the chest was performed after the IV injection of iodinated nonionic contrast including image processing. The image data was postprocessed using 2-dimensional multiplanar reformatted (MPR) and 3-dimensional (MIP and/or volume rendered) techniques. HISTORY: HX of PE, CP COMPARISON: No prior studies are available for comparison. FINDINGS: Heart and pericardium: Heart size is enlarged. No pericardial effusion. There is a cardiac pacemaker with the battery in the left chest wall.. Thoracic aorta: Normal. Pulmonary vasculature: The pulmonary vasculature opacifies without thromboemboli.. Lymph nodes: No enlarged thoracic lymph nodes. Lungs: There is an area of reactive lung tissue identified in the right middle lobe laterally. This appears to represent an acute infiltrate in this patient. Underlying pathology is not excluded on this study. Recheck evaluation after clinical therapy would be of benefit. The remaining lungs are clear. No effusion or pneumothorax. The central airway is patent.. Pleural space: No effusion, thickening, or pneumothorax. Musculoskeletal structures: No significant abnormality. Upper abdominal structures: No significant abnormality. IMPRESSION: There is no evidence of pulmonary arterial emboli. Small focus of reactive lung tissue in the right middle lung laterally, infectious etiology is suspected. Underlying pathology is not excluded. Recheck study after clinical therapy is recommended. Cardiomegaly with no evidence of pericardial effusion. Cardiac pacemaker with the battery in the left chest wall.
[2017-03-02 00:44] VITALS: BP 130/86
--- NOTE | 2017-03-03 09:19 | XRay Report ---
CHEST 2 VIEWS INDICATION: Chest pain, shortness of breath. COMPARISON: 01/28/2017 FINDINGS: PA and lateral chest radiographs again demonstrate mild cardiomegaly and prominent/crowded markings centrally and infrahilar. Normal osseous structures. Left-sided pacemaker with dual chamber leads. Right hemidiaphragm now minimally obscured. CONCLUSION: Subtle right lung base infiltrate now not entirely excluded with stable cardiomegaly and left-sided pacemaker, as described. Please correlate clinically and follow on subsequent exams. Thank you for the opportunity to participate in this patient's care.
== END 2017-03-02 00:47 | disposition home or self-care (01) ==
LOC: ED 20:16
DX: R07.9 Chest pain, unspecified (principal); I50.9 Heart failure, unspecified; J45.909 Unspecified asthma, uncomplicated; F17.200 Nicotine dependence, unspecified, uncomplicated
CPT/HCPCS: 36415; 71020; 71275; 80048; 84484; 85025; 85610; 85730; 93005; 93010; 99285; Q9967

== ENCOUNTER 2017-03-02 21:08 | Emergency (ER) | payer SELFPAY ==
[2017-03-02 22:03] LABS: Basophils % (Auto) 0.7 % (0.0-1.8); Eosinophils % (Auto) 0.6 % (0.0-4.3); Hemoglobin 15.5 gm/dl (11.8-15.2); Mean Corpuscular HGB Conc 32 % (32-34); Mean Corpuscular Hemoglobin 26 pg (28-32); Mean Corpuscular Volume 81 fl (84-94); Platelet Count 168 K/mm3 (140-440); Red Blood Count 5.93 M/mm3 (3.65-5.03); Red Cell Distribution Width 15.4 % (13.2-15.2); White Blood Count 8.5 K/mm3 (4.5-11.0)
[2017-03-02 22:25] LABS: Anion Gap 19 mmol/L; BUN/Creatinine Ratio 12.22; Blood Urea Nitrogen 11 mg/dL (9-20); Calcium 8.8 mg/dL (8.4-10.2); Carbon Dioxide 23 mmol/L (22-30); Glucose 133 mg/dL (75-100); Potassium 3.4 mmol/L (3.6-5.0); Sodium 137 mmol/L (137-145)
[2017-03-03] MEDS ORDERED: MORPHINE IV ONE (01:19)
[2017-03-03] MEDS ORDERED: ROCEPHIN/NS 1 GM/50 ML 1 GM/50 ML BAG IV ONE (01:19)
--- NOTE | 2017-03-03 01:20 | Emergency Department Report ---
ED General Adult HPI - General Chief complaint: Chest Pain Stated complaint: CHEST PAIN, SHORTNESS OF BREATH Time Seen by Provider: 03/03/17 01:05 Source: patient, RN notes reviewed, old records reviewed Mode of arrival: Ambulatory Limitations: No Limitations - History of Present Illness Initial comments: This is a 36-year-old male. He is previously unknown to me. Past medical history includes asthma, bronchitis, nonischemic cardiomyopathy with an ejection fraction of 10-15%, with AICD. Recently diagnosed with a pulmonary embolus. The patient was seen in the ER yesterday and was diagnosed with a right middle lobe pneumonia on CT scan of the chest. The patient presents to the ER today with persistent right-sided chest discomfort, cough, mucus production. There is mild shortness of breath. No vomiting or diaphoresis. -: Gradual Location: chest Quality: aching Consistency: intermittent Improves with: rest Worsens with: movement Associated Symptoms: chest pain, cough - Related Data Previous Rx's Medication Instructions Recorded Last Taken Type ALBUTEROL Inhaler [ProAir HFA 2 puff IH QID PRN #30 inhalation 01/31/17 Unknown Rx Inhaler] Carvedilol [Coreg] 3.125 mg PO BID #60 tablet 01/31/17 Unknown Rx Furosemide [Lasix TAB] 40 mg PO QDAY #30 tablet 01/31/17 Unknown Rx Lisinopril [Zestril TAB] 2.5 mg PO QDAY #30 tablet 01/31/17 Unknown Rx Warfarin [Coumadin] 7.5 mg PO QDAY #30 tablet 01/31/17 Unknown Rx guaiFENesin/CODEINE [Robitussin AC] 10 ml PO Q4H PRN 14 Days 01/31/17 Unknown Rx predniSONE [Deltasone] 10 mg PO .TAPER #48 tab 01/31/17 Unknown Rx Acetaminophen/Codeine [Tylenol 1 tab PO Q6H PRN #15 tab 03/03/17 Unknown Rx /Codeine # 3 tab] Albuterol Sulfate [Proair 90 mcg IH Q4HR PRN #2 aer.pow.ba 03/03/17 Unknown Rx Respiclick] Amoxicillin 500 mg PO TID #15 capsule 03/03/17 Unknown Rx Enoxaparin [Lovenox] 100 mg SQ Q12HR #10 syringe 03/03/17 Unknown Rx Allergies Allergy/AdvReac Type Severity Reaction Status Date / Time ibuprofen Allergy Vomiting Verified 12/22/16 23:44 mushroom Allergy Swelling Verified 12/22/16 23:44 ED Review of Systems ROS: Stated complaint: CHEST PAIN, SHORTNESS OF BREATH Other details as noted in HPI Constitutional: malaise Eyes: denies: vision change ENT: denies: epistaxis Respiratory: see HPI, cough Cardiovascular: chest pain Gastrointestinal: denies: vomiting Genitourinary: as per HPI Musculoskeletal: as per HPI Skin: denies: lesions Neurological: denies: headache Psychiatric: denies: anxiety ED Past Medical Hx - Past Medical History Previous Medical History?: Yes Hx CVA: Yes Hx Congestive Heart Failure: Yes Hx Diabetes: No Hx Asthma: Yes Hx COPD: No Additional medical history: cardiomyopathy, irreg heart beat, Pacemaker/Defib, anxity, depression, Pulmonary Embolism, - Surgical History Additional Surgical History: Pacemaker/defib - Social History Smoking Status: Unknown if ever smoked - Medications Home Medications: Home Medications Medication Instructions Recorded Confirmed Last Taken Type ALBUTEROL Inhaler [ProAir HFA 2 puff IH QID PRN #30 inhalation 01/31/17 Unknown Rx Inhaler] Carvedilol [Coreg] 3.125 mg PO BID #60 tablet 01/31/17 03/01/17 Unknown Rx Furosemide [Lasix TAB] 40 mg PO QDAY #30 tablet 01/31/17 03/01/17 Unknown Rx Lisinopril [Zestril TAB] 2.5 mg PO QDAY #30 tablet 01/31/17 03/01/17 Unknown Rx Warfarin [Coumadin] 7.5 mg PO QDAY #30 tablet 01/31/17 03/01/17 Unknown Rx guaiFENesin/CODEINE [Robitussin AC] 10 ml PO Q4H PRN 14 Days 01/31/17 03/01/17 Unknown Rx predniSONE [Deltasone] 10 mg PO .TAPER #48 tab 01/31/17 03/01/17 Unknown Rx Acetaminophen/Codeine [Tylenol 1 tab PO Q6H PRN #15 tab 03/03/17 Unknown Rx /Codeine # 3 tab] Albuterol Sulfate [Proair 90 mcg IH Q4HR PRN #2 aer.pow.ba 03/03/17 Unknown Rx Respiclick] Amoxicillin 500 mg PO TID #15 capsule 03/03/17 Unknown Rx Enoxaparin [Lovenox] 100 mg SQ Q12HR #10 syringe 03/03/17 Unknown Rx ED Physical Exam - General Limitations: No Limitations General appearance: alert, in no apparent distress - Head Head exam: Present: atraumatic, normocephalic - Eye Eye exam: Present: normal appearance, EOMI. Absent: nystagmus - ENT ENT exam: Present: normal exam, normal orophraynx, mucous membranes moist, normal external ear exam - Neck Neck exam: Present: normal inspection, full ROM. Absent: tenderness, meningismus - Respiratory Respiratory exam: Present: rhonchi (the rhonchi are noted in the right hemithorax in the lower lobe rose.), chest wall tenderness. Absent: respiratory distress - Cardiovascular Cardiovascular Exam: Present: regular rate, normal rhythm, normal heart sounds. Absent: bradycardia, tachycardia, irregular rhythm, systolic murmur, diastolic murmur, rubs, gallop - GI/Abdominal GI/Abdominal exam: Present: soft, normal bowel sounds. Absent: distended, tenderness, guarding, rebound, rigid, pulsatile mass - Rectal Rectal exam: Present: deferred - Extremities Exam Extremities exam: Present: normal inspection, full ROM, normal capillary refill. Absent: tenderness, pedal edema, joint swelling, calf tenderness - Back Exam Back exam: Present: normal inspection, full ROM. Absent: tenderness, CVA tenderness (R), CVA tenderness (L), muscle spasm, paraspinal tenderness, vertebral tenderness - Neurological Exam Neurological exam: Present: alert, oriented X3, normal gait, other (Extraocular movements intact. Tongue midline. No facial droop. Facial sensation intact to light touch in the V1, V2, V3 distribution bilaterally. 5 and 5 strength in 4 extremities.. Sensation is intact to light touch in 4 extremities.). Absent : motor sensory deficit - Psychiatric Psychiatric exam: Present: normal affect, normal mood - Skin Skin exam: Present: warm, dry, intact, normal color. Absent: rash ED Course Vital Signs 03/02/17 03/03/17 03/03/17 21:32 00:43 00:51 Temperature 98.1 F Pulse Rate 92 H 83 84 Respiratory 22 41 H 31 H Rate Blood Pressure 128/90 O2 Sat by Pulse 97 97 98 Oximetry 03/03/17 03/03/17 03/03/17 00:57 01:00 01:11 Temperature Pulse Rate 74 86 Respiratory 24 25 H 18 Rate Blood Pressure 98/65 O2 Sat by Pulse 99 95 96 Oximetry 03/03/17 03/03/17 03/03/17 01:21 01:31 01:41 Temperature Pulse Rate 80 77 86 Respiratory 22 15 27 H Rate Blood Pressure 98/65 98/65 98/65 O2 Sat by Pulse 97 90 95 Oximetry 03/03/17 03/03/17 03/03/17 01:49 01:57 02:00 Temperature Pulse Rate 81 90 Respiratory 22 22 22 Rate Blood Pressure 98/65 97/70 O2 Sat by Pulse 96 91 Oximetry 03/03/17 03/03/17 03/03/17 02:11 02:21 02:30 Temperature Pulse Rate 74 76 77 Respiratory 29 H 26 H 32 H Rate Blood Pressure 97/70 97/70 109/73 O2 Sat by Pulse 94 92 93 Oximetry 03/03/17 03/03/17 03/03/17 02:41 02:50 03:01 Temperature Pulse Rate 87 80 95 H Respiratory 26 H 14 16 Rate Blood Pressure 109/73 109/73 109/73 O2 Sat by Pulse 90 96 97 Oximetry 03/03/17 03/03/17 03/03/17 03:11 03:21 03:31 Temperature Pulse Rate 87 81 86 Respiratory 18 44 H 14 Rate Blood Pressure 109/73 109/73 109/73 O2 Sat by Pulse 89 88 94 Oximetry 03/03/17 03:41 Temperature Pulse Rate 86 Respiratory 14 Rate Blood Pressure 109/73 O2 Sat by Pulse 96 Oximetry - Reevaluation(s) Reevaluation #1: 03/03/17 03:28 Differential diagnosis: Pneumonia, bronchitis, reactive airway disease, pulmonary embolus, acute coronary syndrome Assessment and plan: 36-year-old male who presents to the ER with cough, chest wall pain, mucus production. A CT scan of the chest is performed on March 01 which demonstrated a right middle lobe pneumonia, patient is not discharged with antibiotic therapy. Troponins have been negative multiple times of a multiple days, and CT scan did not demonstrate any evidence of pulmonary embolus. The patient's most likely etiology of pain is the pneumonia. The patient was observed in the ER for a prolonged period of time. An arterial blood gas on room air did not demonstrate hypoxemic respiratory failure. Furthermore, the patient is able to ambulate without significant desaturation. At this point in time, he is afebrile, tolerating liquid feeds, without severe work of breathing. There is no objective indication to admit the patient to the hospital. Furthermore I had an extensive discussion with the patient, and he prefers to be discharged. Given that he is taking anticoagulation at home in the form of Coumadin, he is not suitable for macrolide or fluoroquinolone therapy. He is loaded with ceftriaxone, loaded with Lovenox as he is not taking this medication, and after review of the local [address] [place] [address] pharmacies, will be discharged with amoxicillin. This is on the $4 prescription list. The patient is instructed as to the importance of medication compliance, and instructed to follow up closely with his outpatient obstetrical nurse. He will be discharged at this time, return precautions are reviewed. ED Medical Decision Making - Lab Data Result diagrams: 03/02/17 21:55 03/02/17 21:55 Vital Signs 03/02/17 03/03/17 03/03/17 21:32 00:43 00:51 Temperature 98.1 F Pulse Rate 92 H 83 84 Respiratory 22 41 H 31 H Rate Blood Pressure 128/90 O2 Sat by Pulse 97 97 98 Oximetry 03/03/17 03/03/17 03/03/17 00:57 01:00 01:11 Temperature Pulse Rate 74 86 Respiratory 24 25 H 18 Rate Blood Pressure 98/65 O2 Sat by Pulse 99 95 96 Oximetry 03/03/17 03/03/17 03/03/17 01:21 01:31 01:41 Temperature Pulse Rate 80 77 86 Respiratory 22 15 27 H Rate Blood Pressure 98/65 98/65 98/65 O2 Sat by Pulse 97 90 95 Oximetry 03/03/17 03/03/17 03/03/17 01:49 01:57 02:00 Temperature Pulse Rate 81 90 Respiratory 22 22 22 Rate Blood Pressure 98/65 97/70 O2 Sat by Pulse 96 91 Oximetry 03/03/17 03/03/17 03/03/17 02:11 02:21 02:30 Temperature Pulse Rate 74 76 77 Respiratory 29 H 26 H 32 H Rate Blood Pressure 97/70 97/70 109/73 O2 Sat by Pulse 94 92 93 Oximetry 03/03/17 03/03/17 03/03/17 02:41 02:50 03:01 Temperature Pulse Rate 87 80 95 H Respiratory 26 H 14 16 Rate Blood Pressure 109/73 109/73 109/73 O2 Sat by Pulse 90 96 97 Oximetry Lab Results 03/02/17 03/02/17 03/03/17 Range/Units 21:55 21:55 00:31 WBC 8.5 (4.5-11.0) K/mm3 RBC 5.93 H (3.65-5.03) M/mm3 Hgb 15.5 H (11.8-15.2) gm/dl Hct 48.0 H (35.5-45.6) % MCV 81 L (84-94) fl MCH 26 L (28-32) pg MCHC 32 (32-34) % RDW 15.4 H (13.2-15.2) % Plt Count 168 (140-440) K/mm3 Lymph % (Auto) 15.5 (13.4-35.0) % [place] % (Auto) 7.5 H (0.0-7.3) % Eos % (Auto) 0.6 (0.0-4.3) % Baso % (Auto) 0.7 (0.0-1.8) % Lymph # 1.3 (1.2-5.4) K/mm3 [place] # 0.6 (0.0-0.8) K/mm3 Eos # 0.0 (0.0-0.4) K/mm3 Baso # 0.1 (0.0-0.1) K/mm3 Seg Neutrophils % 75.7 H (40.0-70.0) % Seg Neutrophils # 6.4 (1.8-7.7) K/mm3 PT (12.2-14.9) Sec. INR (0.87-1.13) APTT (24.2-36.6) Sec. POC ABG pH (7.35-7.45) POC ABG pCO2 (35-45) POC ABG pO2 (80-105) POC ABG HCO3 POC ABG Total CO2 POC ABG O2 Sat POC ABG Base Excess FiO2 % Sodium 137 (137-145) mmol/L Potassium 3.4 L (3.6-5.0) mmol/L Chloride 98.0 (98-107) mmol/L Carbon Dioxide 23 (22-30) mmol/L Anion Gap 19 mmol/L BUN 11 (9-20) mg/dL Creatinine 0.9 (0.8-1.5) mg/dL Estimated GFR > 60 ml/min BUN/Creatinine Ratio 12.22 % Glucose 133 H (75-100) mg/dL Lactic Acid (0.7-2.0) mmol/L Calcium 8.8 (8.4-10.2) mg/dL Troponin T < 0.010 < 0.010 (0.00-0.029) ng/mL NT-Pro-B Natriuret Pep (0-450) pg/mL 03/03/17 03/03/17 03/03/17 Range/Units 01:41 01:41 01:41 WBC (4.5-11.0) K/mm3 RBC (3.65-5.03) M/mm3 Hgb (11.8-15.2) gm/dl Hct (35.5-45.6) % MCV (84-94) fl MCH (28-32) pg MCHC (32-34) % RDW (13.2-15.2) % Plt Count (140-440) K/mm3 Lymph % (Auto) (13.4-35.0) % [place] % (Auto) (0.0-7.3) % Eos % (Auto) (0.0-4.3) % Baso % (Auto) (0.0-1.8) % Lymph # (1.2-5.4) K/mm3 [place] # (0.0-0.8) K/mm3 Eos # (0.0-0.4) K/mm3 Baso # (0.0-0.1) K/mm3 Seg Neutrophils % (40.0-70.0) % Seg Neutrophils # (1.8-7.7) K/mm3 PT 13.7 (12.2-14.9) Sec. INR 1.06 (0.87-1.13) APTT 28.5 (24.2-36.6) Sec. POC ABG pH (7.35-7.45) POC ABG pCO2 (35-45) POC ABG pO2 (80-105) POC ABG HCO3 POC ABG Total CO2 POC ABG O2 Sat POC ABG Base Excess FiO2 % Sodium (137-145) mmol/L Potassium (3.6-5.0) mmol/L Chloride (98-107) mmol/L Carbon Dioxide (22-30) mmol/L Anion Gap mmol/L BUN (9-20) mg/dL Creatinine (0.8-1.5) mg/dL Estimated GFR ml/min BUN/Creatinine Ratio % Glucose (75-100) mg/dL Lactic Acid (0.7-2.0) mmol/L Calcium (8.4-10.2) mg/dL Troponin T 0.010 (0.00-0.029) ng/mL NT-Pro-B Natriuret Pep 1005 H (0-450) pg/mL 03/03/17 03/03/17 Range/Units 01:41 01:48 WBC (4.5-11.0) K/mm3 RBC (3.65-5.03) M/mm3 Hgb (11.8-15.2) gm/dl Hct (35.5-45.6) % MCV (84-94) fl MCH (28-32) pg MCHC (32-34) % RDW (13.2-15.2) % Plt Count (140-440) K/mm3 Lymph % (Auto) (13.4-35.0) % [place] % (Auto) (0.0-7.3) % Eos % (Auto) (0.0-4.3) % Baso % (Auto) (0.0-1.8) % Lymph # (1.2-5.4) K/mm3 [place] # (0.0-0.8) K/mm3 Eos # (0.0-0.4) K/mm3 Baso # (0.0-0.1) K/mm3 Seg Neutrophils % (40.0-70.0) % Seg Neutrophils # (1.8-7.7) K/mm3 PT (12.2-14.9) Sec. INR (0.87-1.13) APTT (24.2-36.6) Sec. POC ABG pH 7.509 H (7.35-7.45) POC ABG pCO2 30.5 L (35-45) POC ABG pO2 86 (80-105) POC ABG HCO3 24.3 POC ABG Total CO2 25 POC ABG O2 Sat 98 POC ABG Base Excess 1 FiO2 21 % Sodium (137-145) mmol/L Potassium (3.6-5.0) mmol/L Chloride (98-107) mmol/L Carbon Dioxide (22-30) mmol/L Anion Gap mmol/L BUN (9-20) mg/dL Creatinine (0.8-1.5) mg/dL Estimated GFR ml/min BUN/Creatinine Ratio % Glucose (75-100) mg/dL Lactic Acid 1.0 (0.7-2.0) mmol/L Calcium (8.4-10.2) mg/dL Troponin T (0.00-0.029) ng/mL NT-Pro-B Natriuret Pep (0-450) pg/mL - EKG Data 03/03/17 03:28 EKG demonstrates normal sinus, right bundle branch block, borderline left axis deviation, not consistent with STEMI, appears unchanged when compared to prior EKGs. - Radiology Data Radiology results: report reviewed, image reviewed Critical care attestation.: If time is entered above; I have spent that time in minutes in the direct care of this critically ill patient, excluding procedure time. ED Disposition Clinical Impression: Pneumonia Disposition: DISCHARGED TO HOME OR SELFCARE Is pt being admited?: No Does the pt Need Aspirin: No Condition: Stable Instructions: Community-acquired Pneumonia (ED), Bacterial Pneumonia (ED) Additional Instructions: Dictated antibiotic therapy, breathing medications as directed. Follow up with a primary care doctor or workforce specialist within the next week. Dr. Rajesh Horn is a local primary care doctor. Doctor horn is a local workforce specialist. take the blood thinning medications as directed. Return to the ER right away with new pain, worsened pain, migration of pain, fevers or chills, intractable nausea or vomiting, inability to tolerate liquid feeds. Prescriptions: Acetaminophen/Codeine [Tylenol /Codeine # 3 tab] 1 tab PO Q6H PRN #15 tab PRN Reason: Pain Albuterol Sulfate [Proair Respiclick] 90 mcg IH Q4HR PRN #2 aer.pow.ba PRN Reason: Wheezing Amoxicillin 500 mg PO TID #15 capsule Enoxaparin [Lovenox] 100 mg SQ Q12HR #10 syringe Referrals: PRIMARY MD LUIS [Primary Care Provider] - 3-5 Days ESTEFANIA RAMÍREZ MD [Staff Physician] - 3-5 Days RAJESH HORN MD [Staff Physician] - 3-5 Days Forms: Work/School Release Form(ED)
[2017-03-03] MEDS ORDERED: ATROVENT IH ONE (01:50)
[2017-03-03] MEDS ORDERED: PROVENTIL IH ONE (01:50)
[2017-03-03 02:00] LABS: ISTAT Base Excess 1; ISTAT HCO3 24.3; ISTAT PCO2 30.5 (35-45); ISTAT PH 7.509 (7.35-7.45); ISTAT PO2 86 (80-105); ISTAT SO2 98; ISTAT TCO2 25
[2017-03-03 02:10] LABS: INR 1.06 (0.87-1.13)
[2017-03-03 02:11] LABS: Partial Thromboplastin Time 28.5 Sec. (24.2-36.6)
[2017-03-03 03:13] VITALS: BP 109/73
[2017-03-03] MEDS ORDERED: LOVENOX SUB-Q ONE (03:24)
== END 2017-03-03 03:56 | disposition home or self-care (01) ==
LOC: ED 21:08
DX: J18.9 Pneumonia, unspecified organism (principal); Z86.73 Personal history of transient ischemic attack (TIA), and cerebral infarction without residual deficits; I50.9 Heart failure, unspecified; J45.909 Unspecified asthma, uncomplicated; I26.99 Other pulmonary embolism without acute cor pulmonale; F32.9 Major depressive disorder, single episode, unspecified; F41.9 Anxiety disorder, unspecified; Z95.810 Presence of automatic (implantable) cardiac defibrillator; Z91.018 Allergy to other foods; Z88.8 Allergy status to other drugs, medicaments and biological substances
CPT/HCPCS: 36415; 80048; 82140; 82803; 83880; 84484; 85025; 85610; 85730; 93005; 93010; 94640; 96365; 96372; 96375; 99284; J0696; J1650; J2270

== ENCOUNTER 2017-03-20 21:52 | Inpatient (IN) | payer OTHER ==
[2017-03-20] MEDS ORDERED: TYLENOL PO ONE ×2 (22:05→23:55)
[2017-03-20] MEDS ORDERED: TYLENOL ONE (22:06)
[2017-03-20] MEDS ORDERED: NACL 0.9% 250ML 250 ML IV ONE (22:07)
[2017-03-20 22:27] LABS: ISTAT Base Excess -4; ISTAT DEVICE 0; ISTAT HCO3 20.6; ISTAT PCO2 31.7 (35-45); ISTAT PH 7.421 (7.35-7.45); ISTAT PO2 74 (80-105); ISTAT SO2 95; ISTAT TCO2 22
[2017-03-20 23:16] LABS: INR 5.92 (0.87-1.13); Partial Thromboplastin Time 74.4 Sec. (24.2-36.6)
[2017-03-21] MEDS ORDERED: ROCEPHIN/NS 1 GM/50 ML 1 GM/50 ML BAG IV ONE (00:09)
[2017-03-21 00:17] LABS: Basophils % (Auto) 0.4 % (0.0-1.8); Eosinophils % (Auto) 0.1 % (0.0-4.3); Hematocrit 44.5 % (35.5-45.6); Hemoglobin 14.4 gm/dl (11.8-15.2); Mean Corpuscular HGB Conc 32 % (32-34); Mean Corpuscular Hemoglobin 26 pg (28-32); Mean Corpuscular Volume 81 fl (84-94); Platelet Count 195 K/mm3 (140-440); Red Blood Count 5.48 M/mm3 (3.65-5.03); Red Cell Distribution Width 15.8 % (13.2-15.2)
[2017-03-21 00:30] LABS: Anion Gap 19 mmol/L; Blood Urea Nitrogen 9 mg/dL (9-20); Calcium 8.5 mg/dL (8.4-10.2); Carbon Dioxide 23 mmol/L (22-30); Chloride 95.8 mmol/L (98-107); Creatine Kinase 290 units/L (55-170); Glucose 104 mg/dL (75-100); Potassium 3.5 mmol/L (3.6-5.0); Sodium 134 mmol/L (137-145)
[2017-03-21 00:49] LABS: Creatine Kinase MB 1.5 ng/mL (0.0-4.0)
--- NOTE | 2017-03-21 00:51 | Emergency Department Report ---
HPI - General Chief Complaint: Chest Pain Time Seen by Provider: 03/20/17 23:38 - HPI HPI: Room 23 The patient is a 37-year-old male presenting with a chief complaint of cough, hemoptysis shortness of breath and AICD firing. The patient was diagnosed with pneumonia and treated approximately 2 months ago at this hospital. The patient states she was given a course of antibiotics and symptoms didn't improve over the began to return. The patient has come to the emergency department twice since his discharge before today for chest pain. The patient states for the last 4 days he's had a cough occasionally has been productive with blood. Patient missed a rhinorrhea and diaphoresis. The patient states he only has chest pain with coughing for the past 1-2 weeks describes his pain as soreness. The patient states today at 21:00 while standing on his balcony his AICD fired once. This prompted the patient come to the ED. The patient states he recently moved from [place] and does not have a medication technician or primary physician in [place]. Location: [see above] Duration: [see above] Quality: Soreness Severity: Moderate Modifying factors: [see above] Context: [see above] Mode of transportation: [not driving] ED Past Medical Hx - Past Medical History Hx CVA: Yes Hx Congestive Heart Failure: Yes (nonischemic cardiomyopathy EF 10-15%) Hx Asthma: Yes Additional medical history: cardiomyopathy, irreg heart beat, Pacemaker/Defib, anxity, depression, Pulmonary Embolism, - Surgical History Past Surgical History?: No Additional Surgical History: Pacemaker/defib - Family History Family history: no significant - Social History Smoking Status: Current Every Day Smoker (1/2 pack per day) Substance Use Type: Alcohol (occasional), Marijuana - Medications Home Medications: Home Medications Medication Instructions Recorded Confirmed Last Taken Type Carvedilol [Coreg] 3.125 mg PO BID #60 tablet 01/31/17 03/20/17 03/20/17 Rx Furosemide [Lasix TAB] 40 mg PO QDAY #30 tablet 01/31/17 03/20/17 03/20/17 Rx Warfarin [Coumadin] 7.5 mg PO QDAY #30 tablet 01/31/17 03/20/17 03/20/17 Rx Acetaminophen/Codeine [Tylenol 1 tab PO Q6H PRN #15 tab 04/03/20/17 Rx /Codeine # 3 tab] Albuterol Sulfate [Proair 90 mcg IH Q4HR PRN #2 [email or web address] 03/03/17 03/20/1709/26 Rx Respiclick] Amoxicillin 500 mg PO TID #15 capsule 03/03/17 03/20/17 03/20/17 Rx ED Review of Systems ROS: Stated complaint: CHEST PAIN Other details as noted in HPI Comment: All other systems reviewed and negative Constitutional: fever Eyes: denies: eye pain, eye discharge, vision change ENT: denies: ear pain, throat pain Respiratory: shortness of breath, other (hemoptysis) Cardiovascular: other (AICD fired) Endocrine: no symptoms reported Gastrointestinal: denies: abdominal pain, nausea, diarrhea Genitourinary: denies: urgency, dysuria Musculoskeletal: denies: back pain, joint swelling, arthralgia Skin: denies: rash, lesions Neurological: denies: headache, weakness, paresthesias Psychiatric: denies: anxiety, depression Hematological/Lymphatic: denies: easy bleeding, easy bruising Physical Exam - Physical Exam Vital Signs: Vital Signs 03/20/17 03/20/17 03/20/17 21:50 21:58 22:00 Temperature 100.4 F H Pulse Rate 118 H 120 H 111 H Respiratory 16 18 27 H Rate Blood Pressure 124/78 111/70 Blood Pressure 124/78 [Left] O2 Sat by Pulse 97 96 99 Oximetry 03/20/17 03/20/17 03/20/17 22:11 22:17 22:21 Temperature Pulse Rate 106 H 110 H 110 H Respiratory 37 H 35 H 40 H Rate Blood Pressure 111/70 111/70 Blood Pressure 111/70 [Left] O2 Sat by Pulse 98 98 97 Oximetry 03/20/17 03/20/17 03/20/17 22:23 22:29 22:30 Temperature Pulse Rate 108 H Respiratory 27 H 32 H Rate Blood Pressure 111/65 Blood Pressure [Left] O2 Sat by Pulse 97 98 97 Oximetry 03/20/17 03/20/17 03/20/17 22:41 22:51 23:00 Temperature Pulse Rate 105 H 104 H Respiratory 50 H 29 H 39 H Rate Blood Pressure 111/65 106/72 114/79 Blood Pressure [Left] O2 Sat by Pulse 99 100 100 Oximetry 03/20/17 03/20/17 03/20/17 23:11 23:21 23:30 Temperature Pulse Rate 102 H 90 96 H Respiratory 22 12 18 Rate Blood Pressure 114/79 107/77 99/68 Blood Pressure [Left] O2 Sat by Pulse 99 99 99 Oximetry 03/20/17 03/20/17 03/20/17 23:41 23:51 23:55 Temperature Pulse Rate 106 H 95 H 95 H Respiratory 26 H 30 H 46 H Rate Blood Pressure 99/68 107/77 114/79 Blood Pressure [Left] O2 Sat by Pulse 100 99 100 Oximetry 03/21/17 03/21/17 03/21/17 00:00 00:11 00:21 Temperature 98.5 F Pulse Rate 91 H 100 H 91 H Respiratory 37 H 51 H 34 H Rate Blood Pressure 109/77 109/77 115/80 Blood Pressure 107/77 [Left] O2 Sat by Pulse 99 99 99 Oximetry Physical Exam: GENERAL: The patient is well-developed well-nourished male lying on stretcher not appearing to be in acute distress. [] HEENT: Normocephalic. Atraumatic. Extraocular motions are intact. Patient has moist mucous membranes. NECK: Supple. Trachea midline chest CHEST/LUNGS: Decreased breath sounds at the right base when compared to the left. Occasional cough. There is no respiratory distress noted. HEART/CARDIOVASCULAR: Regular. There is no tachycardia. There is no gallop rub or murmur. ABDOMEN: Abdomen is soft, nontender. Patient has normal bowel sounds. There is no abdominal distention. SKIN: There is no rash. There is no edema. There is diaphoresis. NEURO: The patient is awake, alert, and oriented. The patient is cooperative. The patient has no focal neurologic deficits. The patient has normal speech MUSCULOSKELETAL:There is no evidence of acute injury. ED Course Vital Signs 03/20/17 03/20/17 03/20/17 21:50 21:58 22:00 Temperature 100.4 F H Pulse Rate 118 H 120 H 111 H Respiratory 16 18 27 H Rate Blood Pressure 124/78 111/70 Blood Pressure 124/78 [Left] O2 Sat by Pulse 97 96 99 Oximetry 03/20/17 03/20/17 03/20/17 22:11 22:17 22:21 Temperature Pulse Rate 106 H 110 H 110 H Respiratory 37 H 35 H 40 H Rate Blood Pressure 111/70 111/70 Blood Pressure 111/70 [Left] O2 Sat by Pulse 98 98 97 Oximetry 03/20/17 03/20/17 03/20/17 22:23 22:29 22:30 Temperature Pulse Rate 108 H Respiratory 27 H 32 H Rate Blood Pressure 111/65 Blood Pressure [Left] O2 Sat by Pulse 97 98 97 Oximetry 03/20/17 03/20/17 03/20/17 22:41 22:51 23:00 Temperature Pulse Rate 105 H 104 H Respiratory 50 H 29 H 39 H Rate Blood Pressure 111/65 106/72 114/79 Blood Pressure [Left] O2 Sat by Pulse 99 100 100 Oximetry 03/20/17 03/20/17 03/20/17 23:11 23:21 23:30 Temperature Pulse Rate 102 H 90 96 H Respiratory 22 12 18 Rate Blood Pressure 114/79 107/77 99/68 Blood Pressure [Left] O2 Sat by Pulse 99 99 99 Oximetry 03/20/17 03/20/17 03/20/17 23:41 23:51 23:55 Temperature Pulse Rate 106 H 95 H 95 H Respiratory 26 H 30 H 46 H Rate Blood Pressure 99/68 107/77 114/79 Blood Pressure [Left] O2 Sat by Pulse 100 99 100 Oximetry 03/21/17 03/21/17 03/21/17 00:00 00:11 00:21 Temperature 98.5 F Pulse Rate 91 H 100 H 91 H Respiratory 37 H 51 H 34 H Rate Blood Pressure 109/77 109/77 115/80 Blood Pressure 107/77 [Left] O2 Sat by Pulse 99 99 99 Oximetry - Consultations Consultation #1: 03/21/17 00:51 Cardiology paged 03/21/17 01:[address] Mccarthy- states [employer] can interrogate the AICD in the morning ED Medical Decision Making - Lab Data Result diagrams: 03/20/17 23:30 03/20/17 22:30 Laboratory Tests 03/20/17 03/20/17 03/20/17 22:18 22:30 22:30 WBC RBC Hgb Hct MCV MCH MCHC RDW Plt Count Lymph % (Auto) [place] % (Auto) Eos % (Auto) Baso % (Auto) Lymph # Osborne # Eos # Baso # Seg Neutrophils % Seg Neutrophils # PT 53.7 H INR 5.92 H* APTT 74.4 H* POC ABG pH 7.421 POC ABG pCO2 31.7 L POC ABG pO2 74 L POC ABG HCO3 20.6 POC ABG Total CO2 22 POC ABG O2 Sat 95 POC ABG Base Excess -4 FiO2 21 Sodium 134 L Potassium 3.5 L Chloride 95.8 L Carbon Dioxide 23 Anion Gap 19 BUN 9 Creatinine 1.0 Estimated GFR > 60 BUN/Creatinine Ratio 9.00 Glucose 104 H Calcium 8.5 Total Creatine Kinase 290 H CK-MB (CK-2) 1.5 CK-MB (CK-2) Rel Index 0.5 Troponin T < 0.010 NT-Pro-B Natriuret Pep 03/20/17 03/20/17 22:30 23:30 WBC 10.0 RBC 5.48 H Hgb 14.4 Hct 44.5 MCV 81 L MCH 26 L MCHC 32 RDW 15.8 H Plt Count 195 Lymph % (Auto) 7.8 L [place] % (Auto) 8.6 H Eos % (Auto) 0.1 Baso % (Auto) 0.4 Lymph # 0.8 L [place] # 0.9 H Eos # 0.0 Baso # 0.0 Seg Neutrophils % 83.1 H Seg Neutrophils # 8.3 H PT INR APTT POC ABG pH POC ABG pCO2 POC ABG pO2 POC ABG HCO3 POC ABG Total CO2 POC ABG O2 Sat POC ABG Base Excess FiO2 Sodium Potassium Chloride Carbon Dioxide Anion Gap BUN Creatinine Estimated GFR BUN/Creatinine Ratio Glucose Calcium Total Creatine Kinase CK-MB (CK-2) CK-MB (CK-2) Rel Index Troponin T NT-Pro-B Natriuret Pep 2303 H - EKG Data -: EKG Interpreted by Me EKG shows normal: sinus rhythm Rate: tachycardia (118 bpm) - EKG Data When compared to previous EKG there are: no significant change Interpretation: unchanged when compared t (03/02/2017), other (EKG reveals sinus tachycardia 118 bpm with a right bundle branch block) - Radiology Data Radiology results: image reviewed (chest x-ray) interpreted by me: Chest x-ray-right lower lobe infiltrate that is worsened when compared to previous chest x-ray dated 03/01/2017 - Differential Diagnosis pneumonia, CHF exacerbation, AICD firing/dysrhythmia Critical care attestation.: If time is entered above; I have spent that time in minutes in the direct care of this critically ill patient, excluding procedure time. ED Disposition Clinical Impression: Pneumonia, Fever, Coumadin toxicity, AICD discharge Disposition: OP ADMITTED IP TO THIS HOSP Is pt being admited?: Yes Does the pt Need Aspirin: No Condition: Fair Instructions: Bacterial Pneumonia (ED) Referrals: PRIMARY CARE, [Primary Care Provider] - 3-5 Days Time of Disposition: 01:10 (Hospitalist notified)
--- NOTE | 2017-03-21 01:35 | History and Physical Report ---
History of Present Illness Date of examination: 03/21/17 Chief complaint: Cough History of present illness: Patient is a 37-year-old man with a history of CVA, asthma, tobacco dependancy, NSVT, CHF, cardiomyopathy with AICD and pulmonary embolism on Coumadin who presents with acute onset of severe intermittent productive cough, shortness of breath, small cough streaks of hemoptysis leading to AICD firing today. I have given his pcp choices. 01/29/2017 2-D echocardiogram: Left ventricular chamber size is severely dilated, severe global hypokinesia left ventricle, global left ventricular systolic function is severely decreased, estimated EF is 1015 percent, left ventricular diastolic filling is restrictive, left atrium is severely dilated, right ventricle is mildly dilated, pacemaker wires visualized right ventricle, severe mitral regurgitation, severe tricuspid regurgitation, severe pulmonary hypertension, RVSP estimated at 65 mmHg. He was discharged on with PE but he has no PCP and uses ED as his primary caregiver. He admits to not following up with the [facility], [facility], as instructed because of no insurance. The patient states he recently moved from [place] and is trying to establish Medicaid here. He says that his heart problems was because he "use to be an alcoholic". Past History Past Medical History: other (as hpi) Past Surgical History: Other (ppm) Social history: smoking (advised to quit), full code. denies: alcohol abuse, prescription drug abuse, IV drug use Family history: other (he doesn't know, he lived with foster parents) Medications and Allergies Allergies Allergy/AdvReac Type Severity Reaction Status Date / Time ibuprofen Allergy Vomiting Verified 12/22/16 23:44 mushroom Allergy Swelling Verified 12/22/16 23:44 Home Medications Medication Instructions Recorded Confirmed Last Taken Type Carvedilol [Coreg] 3.125 mg PO BID #60 tablet 01/31/17 03/20/17 03/20/17 Rx Furosemide [Lasix TAB] 40 mg PO QDAY #30 tablet 01/31/17 03/20/17 03/20/17 Rx Warfarin [Coumadin] 7.5 mg PO QDAY #30 tablet 01/31/17 03/20/17 03/20/17 Rx Acetaminophen/Codeine [Tylenol 1 tab PO Q6H PRN #15 tab 03/03/17 03/20/17 Rx /Codeine # 3 tab] Albuterol Sulfate [Proair 90 mcg IH Q4HR PRN #2 [email or web address] 03/03/17 03/20/1709/26 Rx Respiclick] Amoxicillin 500 mg PO TID #15 capsule 03/03/17 03/20/17 03/20/17 Rx Review of Systems All systems: negative (as HPI and all other ROS reviewed and negative.) Exam - Physical Exam Narrative exam: GEN: Ill-appearing toxic, diaphoretic no respiratory distress, AWAKE, ALERT, ORIENTATED 3 HEENT: NCAT, PERRL, EOMI, OP CLEAR NECK: SUPPLE, NO THYROMEGALY, NO JVD, NO LAD CVS: RRR, NORMAL S1S2 LUNGS/CHEST: Coarse breath sounds right mid and lower lobe with decrease bs right, NORMAL CHEST EXPANSION B, adequate AIR ENTRY B ABD: SOFT NTND, GBS, NO REBOUND OR GUARDING EXT/SKIN: NO SIGNIFICANT EDEMA OR RASH MSK: FROM X 4 EXTREMITIES NEURO: CN 2-12 GROSSLY INTACT, NO new FOCAL DEFICITS PSY: CALM - Constitutional Vitals: Temp Pulse Resp BP Pulse Ox 98.5 F 86 39 H 108/81 97 03/21/17 00:00 03/21/17 01:00 03/21/17 01:00 03/21/17 01:00 03/21/17 01:00 Results - Labs CBC & Chem 7: 03/20/17 23:30 03/20/17 22:30 Labs: Abnormal lab results 03/20/17 03/20/17 03/20/17 Range/Units 22:18 22:30 22:30 RBC (3.65-5.03) M/mm3 MCV (84-94) fl MCH (28-32) pg RDW (13.2-15.2) % Lymph % (Auto) (13.4-35.0) % Rich % (Auto) (0.0-7.3) % Lymph # (1.2-5.4) K/mm3 Rich # (0.0-0.8) K/mm3 Seg Neutrophils % (40.0-70.0) % Seg Neutrophils # (1.8-7.7) K/mm3 PT 53.7 H (12.2-14.9) Sec. INR 5.92 H* (0.87-1.13) APTT 74.4 H* (24.2-36.6) Sec. POC ABG pCO2 31.7 L (35-45) POC ABG pO2 74 L (80-105) Sodium 134 L (137-145) mmol/L Potassium 3.5 L (3.6-5.0) mmol/L Chloride 95.8 L (98-107) mmol/L Glucose 104 H (75-100) mg/dL Total Creatine Kinase 290 H (55-170) units/L NT-Pro-B Natriuret Pep (0-450) pg/mL 03/20/17 03/20/17 Range/Units 22:30 23:30 RBC 5.48 H (3.65-5.03) M/mm3 MCV 81 L (84-94) fl MCH 26 L (28-32) pg RDW 15.8 H (13.2-15.2) % Lymph % (Auto) 7.8 L (13.4-35.0) % Rich % (Auto) 8.6 H (0.0-7.3) % Lymph # 0.8 L (1.2-5.4) K/mm3 Rich # 0.9 H (0.0-0.8) K/mm3 Seg Neutrophils % 83.1 H (40.0-70.0) % Seg Neutrophils # 8.3 H (1.8-7.7) K/mm3 PT (12.2-14.9) Sec. INR (0.87-1.13) APTT (24.2-36.6) Sec. POC ABG pCO2 (35-45) POC ABG pO2 (80-105) Sodium (137-145) mmol/L Potassium (3.6-5.0) mmol/L Chloride (98-107) mmol/L Glucose (75-100) mg/dL Total Creatine Kinase (55-170) units/L NT-Pro-B Natriuret Pep 2303 H (0-450) pg/mL - Imaging and Cardiology Chest x-ray: image reviewed Assessment and Plan Patient is a 37-year-old man with a history of CVA, asthma, tobacco dependancy, NSVT, CHF, cardiomyopathy with AICD and pulmonary embolism on Coumadin who presents with acute onset of severe intermittent productive cough, shortness of breath, small cough streaks of hemoptysis leading to AICD firing today. I have given his pcp choices. 01/29/2017 2-D echocardiogram: Left ventricular chamber size is severely dilated, severe global hypokinesia left ventricle, global left ventricular systolic function is severely decreased, estimated EF is 1015 percent, left ventricular diastolic filling is restrictive, left atrium is severely dilated, right ventricle is mildly dilated, pacemaker wires visualized right ventricle, severe mitral regurgitation, severe tricuspid regurgitation, severe pulmonary hypertension, RVSP estimated at 65 mmHg. He was discharged on with PE but he has no PCP and uses ED as his primary caregiver. He admits to not following up with the [facility] [employer], [facility], as instructed because of no insurance. The patient states he recently moved from [place] and is trying to establish Medicaid here. He says that his heart problems was because he "use to be an alcoholic". CXR shows worsening right infiltrates compared to 03/01/17 cxr. -Aspiration pneumonia, right mid to lower lung: Treat with IV antibiotics, more broad-spectrum because frequent hospitalization/ ER visits -Hemoptysis most likely due to supratherapeutic INR: Hold Coumadin and check recheck INR -Hypokalemia: Replace and recheck -AICD firing most likely Nonsustained V. tach: Dr. Mccarthy was contacted by Dr. Kumari-> [employer] [facility] to come for device interrogation -DVT prophylaxis: Coumadin supratherapeutic
[2017-03-21] MEDS ORDERED: ZOFRAN IV PRN (02:01)
[2017-03-21] MEDS ORDERED: TYLENOL PO PRN (02:01)
[2017-03-21] MEDS ORDERED: COUMADIN NO DOSE TODAY PO ONE (02:02)
[2017-03-21] MEDS ORDERED: K-DUR PO ONE (02:02)
[2017-03-21] MEDS ORDERED: MAGNESIUM SULFATE 2GM/50ML 2 GM/50 ML BAG IV ONE (02:02)
[2017-03-21] MEDS ORDERED: NON-FORMULARY (Albuterol Sulfate [Proair Respiclick] 90 MCG) IH PRN (02:05)
[2017-03-21] MEDS: ZOSYN/NS 4.5GM/100ML 4.5 GM/100 ML VIAL IV SCH ×3 (05:50→22:50)
--- NOTE | 2017-03-21 08:53 | XRay Report ---
Portable chest: Chest pain. The heart is big and there is mild vascular congestion. The focal area of mild opacity at the medial right lung base. There is an ICD with atrial and ventricular leads. Compared to the prior study of March 01 the congestion appears worse in the right basilar opacity is present. Impression: Cardiomegaly and CHF. Focal right basilar atelectasis.
[2017-03-21] MEDS: NORCO 5/325 PO PRN (09:10)
--- NOTE | 2017-03-21 09:21 | Progress Note ---
Assessment and Plan Assessment and plan: --Aspiration pneumonia, right mid to lower lung: IV antibiotics, follow cultures, oxygen titrated to O2 sats more than 90% --Coumadin toxicity with supratherapeutic INR Hold Coumadin, closely monitor INR, targets levels 2-3, mild hemoptysis closely monitor for any active bleeding Follow H&H transfuse as needed --AICD discharge Cardiology evaluation, interrogation of ICD --History of pulmonary embolism; on Coumadin Supratherapeutic INR, hold Coumadin resume when INR just to support the goal between 2 and 3 --Nonischemic cardiomyopathy ejection fraction 10-15% Resume home anti-failure medications --Hypertension; moderate control Continue current antihypertensives and when necessary medications --Medical noncompliance Patient strongly advised to adhere to the treatment and diet plan Also encouraged to follow primary care physician and interior design faculty member periodically --DVT prophylaxis Patient is already on Coumadin/supratherapeutic INR SCDs Cardiology evaluation and recommendations noted and appreciated Closely monitor the patient and adjust management as needed Since condition and treatment plan discussed in detail with the patient, his nurse as well as the case management History Interval history: Patient seen and evaluated this morning medical records reviewed No new events reported by nursing staff Patient complains of vague shortness of breath denies chest pain Alert awake oriented 3 not in acute distress Vital signs reviewed Hospitalist Physical - Constitutional Vitals: Temp Pulse Resp BP Pulse Ox 97.5 F L 96 H 20 109/77 98 03/21/17 08:00 03/21/17 08:00 03/21/17 08:00 03/21/17 08:00 03/21/17 08:00 General appearance: Present: no acute distress, well-nourished - EENT Eyes: Present: PERRL, EOM intact - Neck Neck: Present: supple, normal ROM - Respiratory Respiratory effort: normal Respiratory: bilateral: diminished, rales, negative: rhonchi, wheezing - Cardiovascular Rhythm: regular Heart Sounds: Present: S1 & S2 - Extremities Extremities: no ischemia, pulses intact, pulses symmetrical Extremity abnormal: edema - Abdominal General gastrointestinal: soft, non-tender, non-distended, normal bowel sounds - Integumentary Integumentary: Present: clear, warm - Psychiatric Psychiatric: appropriate mood/affect, cooperative - Neurologic Neurologic: CNII-XII intact, moves all extremities Results - Labs CBC & Chem 7: 05/11/17 23:30 03/20/17 22:30 Labs: Laboratory Last Values WBC 10.0 K/mm3 (4.5-11.0) 03/20/17 23: RBC 5.48 M/mm3 (3.65-5.03) H 03/20/17 23:30 Hgb 14.4 gm/dl (11.8-15.2) 03/20/17 23: Hct 44.5 % (35.5-45.6) 03/20/17 23: MCV 81 fl (84-94) L 03/20/17 23:30 MCH 26 pg (28-32) L 03/20/17: MCHC 32 % (32-34) 03/20/17: RDW 15.8 % (13.2-15.2) H 03/20/17 23:30 Plt Count 195 K/mm3 (140-440) 03/20/17 23:30 Lymph % (Auto) 7.8 % (13.4-35.0) L 03/20/17 23:30 [place] % (Auto) 8.6 % (0.0-7.3) H 03/20/17 23:30 Eos % (Auto) 0.1 % (0.0-4.3) 03/20/17: Baso % (Auto) 0.4 % (0.0-1.8) 03/20/17 23:30 Lymph # 0.8 K/mm3 (1.2-5.4) L 03/20/17 23: [place] # 0.9 K/mm3 (0.0-0.8) H 03/20/17 23:30 Eos # 0.0 K/mm3 (0.0-0.4) 03/20/17 23:30 Baso # 0.0 K/mm3 (0.0-0.1) 03/20/17 23: Seg Neutrophils % 83.1 % (40.0-70.0) H 03/20/17 23:30 Seg Neutrophils # 8.3 K/mm3 (1.8-7.7) H 03/20/17 23: PT 53.7 Sec. (12.2-14.9) H 03/20/17 22:30 INR 5.92 (0.87-1.13) H* 03/20/17 22:30 APTT 74.4 Sec. (24.2-36.6) H* 03/20/17 22:30 POC ABG pH 7.421 (7.35-7.45) 03/20/17 22:18 POC ABG pCO2 31.7 (35-45) L 03/20/17 22:18 POC ABG pO2 74 (80-105) L 03/20/17 22:18 POC ABG HCO3 20.6 03/20/17 22:18 POC ABG Total CO2 22 03/20/17 22:18 POC ABG O2 Sat 95 03/20/17 22:18 POC ABG Base Excess -4 03/20/17 22:18 FiO2 21 % 03/20/17 22:18 Sodium 134 mmol/L (137-145) L 03/20/17 22:30 Potassium 3.5 mmol/L (3.6-5.0) L 03/20/17 22:30 Chloride 95.8 mmol/L (98-107) L 03/20/17 22:30 Carbon Dioxide 23 mmol/L (22-30) 03/20/17 22:30 Anion Gap 19 mmol/L 03/20/17 22:30 BUN 9 mg/dL (9-20) 03/20/17 22:30 Creatinine 1.0 mg/dL (0.8-1.5) 03/20/17 22:30 Estimated GFR > 60 ml/min 03/20/17 22:30 BUN/Creatinine Ratio 9.00 % 03/20/17 22:30 Glucose 104 mg/dL (75-100) H 03/20/17 22:30 Calcium 8.5 mg/dL (8.4-10.2) 03/20/17 22:30 Total Creatine Kinase 290 units/L (55-170) H 03/20/17 22:30 CK-MB (CK-2) 1.5 ng/mL (0.0-4.0) 03/20/17 22:30 CK-MB (CK-2) Rel Index 0.5 (0-4) 03/20/17 22:30 Troponin T < 0.010 ng/mL (0.00-0.029) 03/20/17 22:30 NT-Pro-B Natriuret Pep 2303 pg/mL (0-450) H 03/20/17 22:30
[2017-03-21] MEDS: PROVENTIL IH PRN ×2 (09:24→15:46)
[2017-03-21] MEDS: ROBITUSSIN DM PO PRN ×2 (10:43→20:56)
--- NOTE | 2017-03-21 10:56 | Consultation ---
History of Present Illness Consult date: 03/21/17 Consult reason: other (ICD discharge) History of present illness: This is a 37yr old male with a history of Nonischemic cardiomyopathy, EF 10-15% s/p Medtronic AICD, pulmonary embolism on Coumadin, Hypertension and continued tobacco abuse who presents with coughs, shortness of breath and hemoptysis leading to AICD discharge on yesterday. Mildly febrile on presentation. Right lower lobe infiltrate on chest x-ray. Labs notable for an supra therapeutic INR of 5.9. 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 Past History Past Medical History: other (as hpi) Social history: smoking (advised to quit), full code. denies: alcohol abuse, prescription drug abuse, IV drug use Family history: other (he doesn't know, he lived with foster parents) Medications and Allergies Allergies Allergy/AdvReac Type Severity Reaction Status Date / Time ibuprofen Allergy Vomiting Verified 12/22/16 23:44 mushroom Allergy Swelling Verified 12/22/16 23:44 Home Medications Medication Instructions Recorded Confirmed Last Taken Type Carvedilol [Coreg] 3.125 mg PO BID #60 tablet 01/31/17 03/20/17 03/20/17 Rx Furosemide [Lasix TAB] 40 mg PO QDAY #30 tablet 01/31/17 03/20/17 03/20/17 Rx Warfarin [Coumadin] 7.5 mg PO QDAY #30 tablet 01/31/17 03/20/17 03/20/17 Rx Acetaminophen/Codeine [Tylenol 1 tab PO Q6H PRN #15 tab 03/03/17 03/20/17 Rx /Codeine # 3 tab] Albuterol Sulfate [Proair 90 mcg IH Q4HR PRN #2 [email or web address] 03/03/17 03/20/1709/26 Rx Respiclick] Amoxicillin 500 mg PO TID #15 capsule 03/03/17 03/20/17 03/20/17 Rx Active Meds: Active Medications Acetaminophen (Tylenol) 650 mg PO Q6H PRN PRN Reason: Non Cardiac Pain or Temp>100.5 Acetaminophen/Hydrocodone Bitart ([place] 5/325) 1 each PO Q4H PRN PRN Reason: Pain, Moderate (4-6) Last Admin: 03/21/17 09:10 Dose: 1 each Albuterol (Proventil) 2.5 mg IH Q4HRT PRN PRN Reason: Shortness Of Breath Last Admin: 03/21/17 09:24 Dose: 2.5 mg Carvedilol (Coreg) 3.125 mg PO BID ALEXA Furosemide (Lasix) 40 mg PO QDAY ALEXA Guaifenesin (Robitussin Dm) 10 ml PO Q8H PRN PRN Reason: Cough Last Admin: 03/21/17 10:43 Dose: 10 ml Piperacillin Sod/Tazobactam Sod (Zosyn/Ns 4.5gm/100ml) 4.5 gm in 100 mls @ 200 mls/hr IV Q8HR ALEXA PRN Reason: Protocol Last Admin: 03/21/17 05:50 Dose: 200 mls/hr Morphine Sulfate (Morphine) 2 mg IV Q4H PRN PRN Reason: Pain , Severe (7-10) Ondansetron HCl (Zofran) 4 mg IV Q4H PRN PRN Reason: Nausea And Vomiting Warfarin Sodium (Coumadin Pharmacy To Dose) 1 each PO PKCONSULT ALEXA PRN Reason: Protocol Physical Examination Vital Signs Pulse Resp Pulse Ox 118 H 16 97 03/20/17 21:50 03/20/17 21:50 03/20/17 21:50 General appearance: no acute distress HEENT: Positive: PERRL Neck: Positive: trachea midline Cardiac: Positive: Reg Rate and Rhythm Results 03/20/17 23:30 03/20/17 22:30 Assessment and Plan Pneumonia AICD discharge Supra-therapeutic INR Pulmonary embolism on warfarin as an outpatient Nonischemic CMP, EF 10-15% Hypertension Non-compliant with outpatient f/u
[2017-03-21 11:20] LABS: INR 6.01 (0.87-1.13)
[2017-03-21] MEDS: COREG PO SCH ×2 (13:40→22:41)
[2017-03-21] MEDS: LASIX PO SCH (13:40)
[2017-03-21] MEDS ORDERED: ATROVENT IH SCH (20:00)
[2017-03-21] MEDS: DUONEB 0.5 MG-3 MG/3 ML SOLN IH SCH (21:47)
[2017-03-21] MEDS: TESSALON PERLES PO PRN (22:38)
[2017-03-21] MEDS: CORDARONE PO SCH (22:41)
[2017-03-22] MEDS: NORCO 5/325 PO PRN ×3 (01:21→23:10)
[2017-03-22 06:45] LABS: Basophils % (Auto) 0.4 % (0.0-1.8); Eosinophils % (Auto) 0.1 % (0.0-4.3); Hemoglobin 14.5 gm/dl (11.8-15.2); Mean Corpuscular HGB Conc 32 % (32-34); Mean Corpuscular Volume 81 fl (84-94); Platelet Count 207 K/mm3 (140-440); Red Blood Count 5.58 M/mm3 (3.65-5.03)
[2017-03-22] MEDS: ZOSYN/NS 4.5GM/100ML 4.5 GM/100 ML VIAL IV SCH ×3 (06:46→21:58)
[2017-03-22] MEDS: TESSALON PERLES PO PRN ×3 (06:47→22:02)
[2017-03-22 06:50] LABS: Mean Corpuscular Hemoglobin 26 pg (28-32)
[2017-03-22 07:05] LABS: Anion Gap 21 mmol/L; Blood Urea Nitrogen 9 mg/dL (9-20); Calcium 8.3 mg/dL (8.4-10.2); Carbon Dioxide 21 mmol/L (22-30); Chloride 99.3 mmol/L (98-107); Glucose 100 mg/dL (75-100); Potassium 4.3 mmol/L (3.6-5.0); Sodium 137 mmol/L (137-145)
--- NOTE | 2017-03-22 07:35 | Progress Note ---
Assessment and Plan Nonischemic cardiomyopathy, EF 10-15% s/p Medtronic AICD pulmonary embolism on Coumadin Hypertension continued tobacco abuse Continue medical therapy with BB and ARB as tolerated - maximize medications as blood pressure allows strict I/Os, daily weight keep Mg>2 and K>4 BP well controlled Recommend smoking cessation Device interrogation shows 1 shock for VT/VF. Patient has episode history of both VT and atrial fibrillation - continue amiodarone with coumadin Device is near WILLI - patient informed that he needs close follow-up PATIENT IS PROFOUNDLY NON-COMPLIANT Subjective Date of service: 03/22/17 Interval history: No acute events. Resting comfortably. no chest pain or SOB. Objective Vital Signs Temp Pulse Pulse Pulse Pulse Pulse Resp 03/22/17 05:54 97.9 F 95 H 18 03/22/17 00:00 98.3 F 112 H 18 03/21/17 22:41 113 H 03/21/17 22:05 92 H 03/21/17 22:00 104 H 113 H 20 03/21/17 21:50 84 03/21/17 20:00 98.3 F 97 H 18 03/21/17 16:05 74 82 03/21/17 16:00 98.1 F 97 H 20 03/21/17 15:49 03/21/17 15:40 80 76 03/21/17 12:00 98.0 F 103 H 20 03/21/17 10:00 102 H 96 H 20 03/21/17 09:35 78 78 03/21/17 09:20 80 78 03/21/17 08:00 97.5 F L 96 H 20 Resp Resp BP BP Pulse Ox 03/22/17 05:54 98/56 97 03/22/17 00:00 113/75 98 03/21/17 22:41 125/69 03/21/17 22:05 20 03/21/17 22:00 98 03/21/17 21:50 18 94 03/21/17 20:00 105/70 98 03/21/17 16:05 18 20 03/21/17 16:00 100/74 100 03/21/17 15:49 97 03/21/17 15:40 20 20 03/21/17 12:00 129/84 96 03/21/17 10:00 97 03/21/17 09:35 18 20 03/21/17 09:20 22 20 03/21/17 08:00 109/77 98 - Physical Examination HEENT: Positive: PERRL Neck: Positive: trachea midline - Labs and Meds Coagulation 03/21/17 03/22/17 Range/Units 10:36 06:24 PT 54.4 H 50.6 H (12.2-14.9) Sec. INR 6.01 H* (0.87-1.13) CBC 03/22/17 Range/Units 06:30 WBC 19.0 H (4.5-11.0) K/mm3 RBC 5.58 H (3.65-5.03) M/mm3 Hgb 14.5 (11.8-15.2) gm/dl Hct 45.0 (35.5-45.6) % Plt Count 207 (140-440) K/mm3 Lymph # 1.3 (1.2-5.4) K/mm3 [place] # 1.4 H (0.0-0.8) K/mm3 Eos # 0.0 (0.0-0.4) K/mm3 Baso # 0.1 (0.0-0.1) K/mm3 Comprehensive Metabolic Panel 03/22/17 Range/Units 06:30 Sodium 137 (137-145) mmol/L Potassium 4.3 D (3.6-5.0) mmol/L Chloride 99.3 (98-107) mmol/L Carbon Dioxide 21 L (22-30) mmol/L BUN 9 (9-20) mg/dL Creatinine 0.9 (0.8-1.5) mg/dL Glucose 100 (75-100) mg/dL Calcium 8.3 L (8.4-10.2) mg/dL
[2017-03-22 08:08] LABS: INR 5.49 (0.87-1.13)
[2017-03-22] MEDS: DUONEB 0.5 MG-3 MG/3 ML SOLN IH SCH ×3 (08:41→21:21)
[2017-03-22] MEDS: CORDARONE PO SCH ×2 (10:14→22:00)
[2017-03-22] MEDS: LASIX PO SCH (10:14)
[2017-03-22] MEDS: COZAAR PO SCH (10:14)
[2017-03-22] MEDS: COREG PO SCH ×2 (10:15→22:00)
--- NOTE | 2017-03-22 15:28 | Progress Note ---
Assessment and Plan Assessment and plan: --AICD discharge ICD was interrogated ,cardiology following Continue supportive care --Aspiration pneumonia, right mid to lower lung: IV antibiotics, negative cultures so far, oxygen titrate O2 sats more than 90%, repeat chest x-ray --Coumadin toxicity with supratherapeutic INR Hold Coumadin, not today's 5 ,targets levels 2-3, mild hemoptysis as ordered no new episodes, Follow H&H transfuse as needed --History of pulmonary embolism; on Coumadin Supratherapeutic INR, hold Coumadin resume when INR just to support the goal between 2 and 3 --Nonischemic cardiomyopathy ejection fraction 10-15% Resume home anti-failure medications --Hypertension; moderate control Continue current antihypertensives and when necessary medications --Medical noncompliance Patient strongly advised to adhere to the treatment and diet plan Also encouraged to follow primary care physician and er rn periodically --DVT prophylaxis Patient is already on Coumadin/supratherapeutic INR SCDs Cardiology evaluation and recommendations noted and appreciated Closely monitor the patient and adjust management as needed Since condition and treatment plan discussed in detail with the patient, his nurse as well as the case management History Interval history: Patient seen and evaluated medical records reviewed Patient's likely feels better no new charges from ICD His chest pain shortness of breath Alert awake oriented 3 not in acute distress Vital signs reviewed stable Hospitalist Physical - Constitutional Vitals: Temp Pulse Resp BP Pulse Ox 97.7 F 104 H 16 137/70 99 03/22/17 08:00 03/22/17 14:05 03/22/17 14:05 03/22/17 10:15 03/22/17 08:45 General appearance: Present: no acute distress, well-nourished - EENT Eyes: Present: PERRL, EOM intact - Neck Neck: Present: supple, normal ROM - Respiratory Respiratory effort: normal Respiratory: bilateral: diminished, negative: rales, rhonchi, wheezing - Cardiovascular Rhythm: regular Heart Sounds: Present: S1 & S2 - Extremities Extremities: no ischemia, pulses intact, pulses symmetrical Peripheral Pulses: within normal limits - Abdominal General gastrointestinal: soft, non-tender, non-distended, normal bowel sounds - Integumentary Integumentary: Present: clear, warm - Psychiatric Psychiatric: appropriate mood/affect, cooperative - Neurologic Neurologic: CNII-XII intact, moves all extremities Results - Labs CBC & Chem 7: 03/22/17 06:30 03/22/17 06:30 Labs: Laboratory Last Values WBC 19.0 K/mm3 (4.5-11.0) H 03/22/17 06:30 RBC 5.58 M/mm3 (3.65-5.03) H 03/22/17 06:30 Hgb 14.5 gm/dl (11.8-15.2) 03/22/17 06:30 Hct 45.0 % (35.5-45.6) 03/22/17 06:30 MCV 81 fl (84-94) L 03/22/17 06:30 MCH 26 pg (28-32) L 03/22/17 06:30 MCHC 32 % (32-34) 03/22/17 06:30 RDW 16.0 % (13.2-15.2) H 03/22/17 06:30 Plt Count 207 K/mm3 (140-440) 03/22/17 06:30 Lymph % (Auto) 6.9 % (13.4-35.0) L 03/22/17 06:30 [place] % (Auto) 7.2 % (0.0-7.3) 03/22/17 06:30 Eos % (Auto) 0.1 % (0.0-4.3) 03/22/17 06:30 Baso % (Auto) 0.4 % (0.0-1.8) 03/22/17 06:30 Lymph # 1.3 K/mm3 (1.2-5.4) 03/22/17 06:30 [place] # 1.4 K/mm3 (0.0-0.8) H 03/22/17 06:30 Eos # 0.0 K/mm3 (0.0-0.4) 03/22/17 06:30 Baso # 0.1 K/mm3 (0.0-0.1) 03/22/17 06:30 Seg Neutrophils % 85.4 % (40.0-70.0) H 03/22/17 06:30 Seg Neutrophils # 16.2 K/mm3 (1.8-7.7) H 03/22/17 06:30 PT 50.6 Sec. (12.2-14.9) H 03/22/17 06:24 INR 5.49 (0.87-1.13) H* 03/22/17 06:24 APTT 74.4 Sec. (24.2-36.6) H* 03/20/17 22:30 POC ABG pH 7.421 (7.35-7.45) 03/20/17 22:18 POC ABG pCO2 31.7 (35-45) L 03/20/17 22:18 POC ABG pO2 74 (80-105) L 03/20/17 22:18 POC ABG HCO3 20.6 03/20/17 22:18 POC ABG Total CO2 22 03/20/17 22:18 POC ABG O2 Sat 95 03/20/17 22:18 POC ABG Base Excess -4 03/20/17 22:18 FiO2 21 % 03/20/17 22:18 Sodium 137 mmol/L (137-145) 03/22/17 06:30 Potassium 4.3 mmol/L (3.6-5.0) D 03/22/17 06:30 Chloride 99.3 mmol/L (98-107) 03/22/17 06:30 Carbon Dioxide 21 mmol/L (22-30) L 03/22/17 06:30 Anion Gap 21 mmol/L 03/22/17 06:30 BUN 9 mg/dL (9-20) 03/22/17 06:30 Creatinine 0.9 mg/dL (0.8-1.5) 03/22/17 06:30 Estimated GFR > 60 ml/min 03/22/17 06:30 BUN/Creatinine Ratio 10.00 % 03/22/17 06:30 Glucose 100 mg/dL (75-100) 03/22/17 06:30 Calcium 8.3 mg/dL (8.4-10.2) L 03/22/17 06:30 Total Creatine Kinase 290 units/L (55-170) H 03/20/17 22:30 CK-MB (CK-2) 1.5 ng/mL (0.0-4.0) 03/20/17 22:30 CK-MB (CK-2) Rel Index 0.5 (0-4) 03/20/17 22:30 Troponin T < 0.010 ng/mL (0.00-0.029) 03/20/17 22:30 NT-Pro-B Natriuret Pep 2303 pg/mL (0-450) H 03/20/17 22:30
[2017-03-23 06:15] LABS: Anion Gap 19 mmol/L; BUN/Creatinine Ratio 13.33; Blood Urea Nitrogen 12 mg/dL (9-20); Calcium 8.6 mg/dL (8.4-10.2); Carbon Dioxide 21 mmol/L (22-30); Chloride 96.1 mmol/L (98-107); Glucose 107 mg/dL (75-100); Potassium 4.2 mmol/L (3.6-5.0); Sodium 132 mmol/L (137-145)
[2017-03-23 06:18] LABS: INR 4.6 (0.87-1.13)
[2017-03-23] MEDS: ZOSYN/NS 4.5GM/100ML 4.5 GM/100 ML VIAL IV SCH ×3 (07:04→22:33)
[2017-03-23] MEDS: TESSALON PERLES PO PRN ×3 (07:04→22:32)
[2017-03-23] MEDS: DUONEB 0.5 MG-3 MG/3 ML SOLN IH SCH ×3 (07:55→20:12)
--- NOTE | 2017-03-23 08:31 | Progress Note ---
Assessment and Plan Nonischemic cardiomyopathy, EF 10-15% s/p Medtronic AICD pulmonary embolism on Coumadin Hypertension continued tobacco abuse Continue medical therapy with BB and ARB as tolerated - maximize medications as blood pressure allows strict I/Os, daily weight keep Mg>2 and K>4 BP well controlled Recommend smoking cessation Device interrogation shows 1 shock for VT/VF. Patient has episode history of both VT and atrial fibrillation - continue amiodarone with coumadin Device is near WILLI - patient informed that he needs close follow-up ditch worker for help with medicaid PATIENT IS PROFOUNDLY NON-COMPLIANT Subjective Date of service: 03/23/17 Interval history: No acute events. Resting comfortably. no chest pain or SOB. Objective Vital Signs Temp Pulse Pulse Pulse Pulse Resp Resp 03/23/17 07:52 96 H 20 03/23/17 06:29 98.8 F 99 H 20 03/23/17 01:34 97.8 F 92 H 21 03/22/17 22:00 98 H 03/22/17 21:35 95 H 20 03/22/17 21:24 114 H 20 03/22/17 20:00 99 F 108 H 21 03/22/17 16:00 98.6 F 103 H 20 03/22/17 14:05 104 H 16 03/22/17 13:44 68 18 03/22/17 10:15 106 H 03/22/17 10:14 106 H 03/22/17 10:00 90 03/22/17 08:53 96 H 18 03/22/17 08:45 03/22/17 08:39 96 H 17 BP BP Pulse Ox 03/23/17 07:52 99 03/23/17 06:29 98/65 92 03/23/17 01:34 94 03/22/17 22:00 115/73 03/22/17 21:35 03/22/17 21:24 03/22/17 20:00 115/73 92 03/22/17 16:00 109/69 100 03/22/17 14:05 03/22/17 13:44 03/22/17 10:15 137/70 03/22/17 10:14 137/70 03/22/17 10:00 03/22/17 08:53 03/22/17 08:45 99 03/22/17 08:39 - Physical Examination HEENT: Positive: PERRL Neck: Positive: trachea midline - Labs and Meds Coagulation 03/23/17 Range/Units 05:30 PT 44.0 H (12.2-14.9) Sec. INR 4.60 H (0.87-1.13) Comprehensive Metabolic Panel 03/23/17 Range/Units 05:30 Sodium 132 L (137-145) mmol/L Potassium 4.2 (3.6-5.0) mmol/L Chloride 96.1 L (98-107) mmol/L Carbon Dioxide 21 L (22-30) mmol/L BUN 12 (9-20) mg/dL Creatinine 0.9 (0.8-1.5) mg/dL Glucose 107 H (75-100) mg/dL Calcium 8.6 (8.4-10.2) mg/dL
[2017-03-23] MEDS: COREG PO SCH ×2 (09:11→22:32)
[2017-03-23] MEDS: LASIX PO SCH (09:11)
[2017-03-23] MEDS: CORDARONE PO SCH ×2 (10:00→22:32)
[2017-03-23] MEDS: COZAAR PO SCH (10:00)
[2017-03-23] MEDS: MORPHINE IV PRN ×2 (15:29→22:33)
--- NOTE | 2017-03-23 17:12 | Progress Note ---
Assessment and Plan Assessment and plan: --AICD discharge ICD was interrogated ,cardiology following --Aspiration pneumonia, right mid to lower lung: IV antibiotics, negative cultures so far, oxygen titrate O2 sats more than 90%, repeat chest x-ray --Coumadin toxicity with supratherapeutic INR INR is trending down, when reaches therapeutic levels will resume Coumadin --History of pulmonary embolism; on Coumadin Supratherapeutic INR, hold Coumadin resume when INR within the range --Nonischemic cardiomyopathy ejection fraction 10-15% Resume home anti-failure medications --Hypertension; moderate control Continue current antihypertensives and when necessary medications --Medical noncompliance Patient strongly advised to adhere to the treatment and diet plan Also encouraged to follow primary care physician and screen tender helper periodically --DVT prophylaxis Patient is already on Coumadin/supratherapeutic INR SCDs Cardiology evaluation and recommendations noted and appreciated Closely monitor the patient and adjust management as needed Since condition and treatment plan discussed in detail with the patient, his nurse as well as the case management Possible discharge home tomorrow if stable History Interval history: Patient seen and evaluated this morning medical records reviewed No new events reported by nursing staff INR levels extending down remained supratherapeutic Denies chest pain or shortness of breath Alert awake oriented 3 not in acute distress vital signs reviewed stable Hospitalist Physical - Constitutional Vitals: Temp Pulse Resp BP Pulse Ox 98.2 F 80 20 101/73 99 03/23/17 10:10 03/23/17 14:40 03/23/17 14:40 03/23/17 10:10 03/23/17 10:10 General appearance: Present: no acute distress, well-nourished - EENT Eyes: Present: PERRL, EOM intact - Neck Neck: Present: supple, normal ROM - Respiratory Respiratory effort: normal Respiratory: bilateral: diminished, rales, negative: rhonchi, wheezing - Cardiovascular Rhythm: regular Heart Sounds: Present: S1 & S2 - Extremities Extremities: no ischemia, pulses intact, pulses symmetrical Peripheral Pulses: within normal limits - Abdominal General gastrointestinal: soft, non-tender, non-distended, normal bowel sounds - Integumentary Integumentary: Present: clear, warm - Psychiatric Psychiatric: appropriate mood/affect, cooperative - Neurologic Neurologic: CNII-XII intact, moves all extremities Results - Labs CBC & Chem 7: 0513/17 06:30 03/23/17 05:30 Labs: Laboratory Last Values WBC 19.0 K/mm3 (4.5-11.0) H 03/22/17 06:30 RBC 5.58 M/mm3 (3.65-5.03) H 03/22/17 06:30 Hgb 14.5 gm/dl (11.8-15.2) 03/22/17 06:30 Hct 45.0 % (35.5-45.6) 03/22/17 06:30 MCV 81 fl (84-94) L 03/22/17 06:30 MCH 26 pg (28-32) L 03/22/17 06:30 MCHC 32 % (32-34) 03/22/17 06:30 RDW 16.0 % (13.2-15.2) H 03/22/17 06:30 Plt Count 207 K/mm3 (140-440) 03/22/17 06:30 Lymph % (Auto) 6.9 % (13.4-35.0) L 03/22/17 06:30 [place] % (Auto) 7.2 % (0.0-7.3) 03/22/17 06:30 Eos % (Auto) 0.1 % (0.0-4.3) 03/22/17 06:30 Baso % (Auto) 0.4 % (0.0-1.8) 03/22/17 06:30 Lymph # 1.3 K/mm3 (1.2-5.4) 03/22/17 06:30 [place] # 1.4 K/mm3 (0.0-0.8) H 03/22/17 06:30 Eos # 0.0 K/mm3 (0.0-0.4) 03/22/17 06:30 Baso # 0.1 K/mm3 (0.0-0.1) 03/22/17 06:30 Seg Neutrophils % 85.4 % (40.0-70.0) H 03/22/17 06:30 Seg Neutrophils # 16.2 K/mm3 (1.8-7.7) H 03/22/17 06:30 PT 44.0 Sec. (12.2-14.9) H 03/23/17 05:30 INR 4.60 (0.87-1.13) H 03/23/17 05:30 APTT 74.4 Sec. (24.2-36.6) H* 03/20/17 22:30 POC ABG pH 7.421 (7.35-7.45) 03/20/17 22:18 POC ABG pCO2 31.7 (35-45) L 03/20/17 22:18 POC ABG pO2 74 (80-105) L 03/20/17 22:18 POC ABG HCO3 20.6 03/20/17 22:18 POC ABG Total CO2 22 03/20/17 22:18 POC ABG O2 Sat 95 03/20/17 22:18 POC ABG Base Excess -4 03/20/17 22:18 FiO2 21 % 03/20/17 22:18 Sodium 132 mmol/L (137-145) L 03/23/17 05:30 Potassium 4.2 mmol/L (3.6-5.0) 03/23/17 05:30 Chloride 96.1 mmol/L (98-107) L 03/23/17 05:30 Carbon Dioxide 21 mmol/L (22-30) L 03/23/17 05:30 Anion Gap 19 mmol/L 03/23/17 05:30 BUN 12 mg/dL (9-20) 03/23/17 05:30 Creatinine 0.9 mg/dL (0.8-1.5) 03/23/17 05:30 Estimated GFR > 60 ml/min 03/23/17 05:30 BUN/Creatinine Ratio 13.33 % 03/23/17 05:30 Glucose 107 mg/dL (75-100) H 03/23/17 05:30 Calcium 8.6 mg/dL (8.4-10.2) 03/23/17 05:30 Magnesium 2.00 mg/dL (1.7-2.3) 03/23/17 05:30 Total Creatine Kinase 290 units/L (55-170) H 03/20/17 22:30 CK-MB (CK-2) 1.5 ng/mL (0.0-4.0) 03/20/17 22:30 CK-MB (CK-2) Rel Index 0.5 (0-4) 03/20/17 22:30 Troponin T < 0.010 ng/mL (0.00-0.029) 03/20/17 22:30 NT-Pro-B Natriuret Pep 2303 pg/mL (0-450) H 03/20/17 22:30
[2017-03-24] MEDS: ZOSYN/NS 4.5GM/100ML 4.5 GM/100 ML VIAL IV SCH (05:39)
[2017-03-24 07:42] LABS: INR 4.37 (0.87-1.13)
[2017-03-24 08:27] VITALS: BP 114/80
[2017-03-24] MEDS: DUONEB 0.5 MG-3 MG/3 ML SOLN IH SCH (09:03)
[2017-03-24] MEDS: COREG PO SCH (09:46)
[2017-03-24] MEDS: LASIX PO SCH (09:46)
[2017-03-24] MEDS: CORDARONE PO SCH (09:46)
[2017-03-24] MEDS: COZAAR PO SCH (09:46)
[2017-03-24] MEDS: TESSALON PERLES PO PRN (09:48)
[2017-03-24] MEDS: NORCO 5/325 PO PRN (09:49)
--- NOTE | 2017-03-24 10:52 | Discharge Summary ---
Providers - Providers Date of Admission: 03/21/17 01:10 Date of discharge: 03/24/17 Attending physician: JOHANNA CARVER 03/21/17 02:04 Consult to Physician [CONS] Routine Consulting Provider: DARCIE PERKINS Reason For Exam: nsvt, aicd firing Place consult to:: Shari GHOSH Notified:: Shari Was contact made?: Yes Time called:: 01:30 03/22/17 07:59 Consult to Case Management [CONS] Routine Services Needed at Discharge: Trailer Technician Other Notified:: case management Primary care physician: [facility] Hospitalization Reason for admission: worsening shortness of breath/cough Condition: Fair Pertinent studies: Chest x-ray ; cardiomegaly and CHF focal right basilar atelectasis Hospital course: Very pleasant 37-year-old -[place] male patient with significant history of CVA , cardiomyopathy status post ICD history of pulmonary embolism on Coumadin dilated cardiomyopathy with ejection fraction of 10-15% noncompliant with medications because of social issues Was admitted through emergency room with worsening shortness of breath and cough Patient was initially evaluated and noted to be in acute respiratory failure secondary to acute exacerbation of chronic systolic congestive heart failure Symptomatically managed, resumed Rod[place] home medications Subsequently evaluated by cardiology who optimize the medications Patient also had Coumadin toxicity with supratherapeutic INR, Coumadin was held INR was closely monitored The time of admission patient had very minimal blood tinged sputum probably secondary to hypercoagulation. Symptoms completely resolved library services assistant has evaluated the patient, and assisted with discharge planning Today's comfortable in bed denies any chest pain or shortness of Alert awake oriented 3 not in acute distress Vital signs reviewed stable [id number] evaluation and physical examination done by me prior to discharge is unremarkable Patient is hemodynamically and clinically stable for discharge and does not need any further acute inpatient care at this time Smoking cessation counseling done patient strongly advised to quit tobacco use Counseling done and patient strongly advised to adhere to the treatment and diet plan and also follow up with primary care physician as well as trailer rental clerk periodically Patient verbalized understanding Final diagnosis; AICD discharge Aspiration pneumonia Acute respiratory failure secondary to acute on chronic systolic congestive heart failure Nonischemic cardiomyopathy ejection fraction 10-15% Coumadin toxicity/coagulopathy Hypertension Pulmonary embolism on chronic anticoagulation Medical noncompliance Tobacco use Disposition: DISCHARGED TO HOME OR SELFCARE Time spent for discharge: 35 min Core Measure Documentation - Palliative Care Palliative Care/ Comfort Measures: Not Applicable - Core Measures Any of the following diagnoses?: heart failure - Heart Failure Discharge Requirements JAVAD/ARB for LVSD if EF <40%: Yes Beta ko at discharge: Yes Exam - Constitutional Vitals: Temp Pulse Resp BP Pulse Ox 97.5 F L 92 H 20 114/80 99 03/24/17 08:00 03/24/17 10:04 03/24/17 09:14 03/24/17 08:00 03/24/17 09:00 General appearance: Present: no acute distress, well-nourished - EENT Eyes: Present: PERRL, EOM intact - Neck Neck: Present: supple, normal ROM - Respiratory Respiratory effort: normal Respiratory: bilateral: diminished, negative: rales, rhonchi, wheezing - Cardiovascular Rhythm: regular Heart Sounds: Present: S1 & S2 - Extremities Extremities: no ischemia, pulses intact, pulses symmetrical - Abdominal General gastrointestinal: Present: soft, non-tender - Integumentary Integumentary: Present: clear, warm - Musculoskeletal Musculoskeletal: strength equal bilaterally - Psychiatric Psychiatric: appropriate mood/affect, cooperative - Neurologic Neurologic: CNII-XII intact, moves all extremities Plan Activity: no restrictions Diet: low cholesterol, low salt, other (cardiac diet) Additional Instructions: hold coumadin. check INR in 2-3 days at PMD office , If INR is between 2-3, take 5 mg coumadin at night ,Frequent chescks of INR, target level 2-3 Follow up with: PRIMARY CAREMD [Primary Care Provider] - 3-5 Days ERNESTO LEE MD [Staff Physician] - 7 Days Forms: Warfarin Discharge Instruction Prescriptions: Acetaminophen/Codeine [Tylenol /Codeine # 3 tab] 1 tab PO Q6H PRN #15 tab PRN Reason: Pain Amiodarone [Cordarone 200 MG TAB] 200 mg PO BID #60 tablet Benzonatate [Tessalon Perles] 100 mg PO Q8HR PRN #30 capsule PRN Reason: Cough Carvedilol [Coreg] 3.125 mg PO BID #60 tablet Furosemide [Lasix TAB] 40 mg PO QDAY #30 tablet Losartan [Cozaar] 25 mg PO QDAY #30 tablet
== END 2017-03-24 11:46 | disposition home or self-care (01) | DRG 314 ==
LOC: ED 21:52 → 4A 03-21 01:10
PROVIDERS: ADMIT Internal Medicine; ATTEND Internal Medicine
PROC: 4A033R1 Measurement of Arterial Saturation, Peripheral, Percutaneous Approach (ICD-10-PCS; principal; 2017-03-20)
DX: T82.198A Other mechanical complication of other cardiac electronic device, initial encounter (principal); J69.0 Pneumonitis due to inhalation of food and vomit; I26.99 Other pulmonary embolism without acute cor pulmonale; J96.00 Acute respiratory failure, unspecified whether with hypoxia or hypercapnia; I50.23 Acute on chronic systolic (congestive) heart failure; I42.9 Cardiomyopathy, unspecified; R04.2 Hemoptysis; D68.9 Coagulation defect, unspecified; I11.0 Hypertensive heart disease with heart failure; T45.515A Adverse effect of anticoagulants, initial encounter; F17.210 Nicotine dependence, cigarettes, uncomplicated; E87.6 Hypokalemia; F41.9 Anxiety disorder, unspecified; F32.9 Major depressive disorder, single episode, unspecified; Z88.8 Allergy status to other drugs, medicaments and biological substances; Z91.018 Allergy to other foods; Z91.19 Patient's noncompliance with other medical treatment and regimen; Z86.711 Personal history of pulmonary embolism; Z86.73 Personal history of transient ischemic attack (TIA), and cerebral infarction without residual deficits; Z79.01 Long term (current) use of anticoagulants; Y92.89 Other specified places as the place of occurrence of the external cause; Z71.6 Tobacco abuse counseling
CPT/HCPCS: 36415; 71010; 80048; 82550; 82553; 82803; 83735; 83880; 84484; 85025; 85610; 85730; 87040; 87205; 93005; 93010; 94640; 94760; 96365; 96366; 96368; 99406; J0696; J2270; J2543; J3475; J7050